=== PATIENT | male | born 1975 | race Caucasian/White ===

== ENCOUNTER 2017-03-08 15:13 | Inpatient (IN) ==
--- NOTE | 2017-03-08 15:20 | Emergency Department Note ---
Disposition Clinical Impression: Suicidal ideation Disposition: Admitted As Inpatient Condition: Good Referrals: NONE,PCP [Primary Care Provider] - Time of Disposition: 17:37 Psych HPI - General Chief Complaint: ED Psychiatric Symptoms Stated Complaint: depression Time Seen by Provider: 03/08/17 15:16 Nursing Notes Reviewed: Yes Vital Signs Reviewed: Yes - History of Present Illness HPI Narrative: 41-year-old male with past history of schizophrenia, suicidal ideations persisted emergency department complaining of racing thoughts, stating that he will walk out in front of a train to kill himself. Patient states that this should be enough to be evaluated by 1A. When asked if patient has any chest pain or any other symptoms, patient states that he does not have to answer anymore questions for me as he has already told me everything I need to know. Patient states his racing thoughts are that somebody is placing LSD on his foam roll that he sleeps on. - Related Data Previous Rx's Medication Instructions Recorded Ciprofloxacin [Cipro] 500 mg PO BID #30 tablet 02/07/15 Amoxicillin 875 mg PO BID #20 tablet 08/19/15 Guaifenesin/Pseudoephedrne HCl 1 each PO BID #20 tab.er.12h 08/19/15 [Mucinex D ER 1,200-120 mg Tab] Loratadine [Claritin] 10 mg PO DAILY #30 tablet 08/19/15 Promethazine [Phenergan] 25 mg PO Q6HR 4 Days tablet 01/30/16 Amoxicillin [Amoxil] 500 mg PO BID #20 capsule 02/15/17 Fluticasone Propionate Nasal 120 spray NS DAILY #1 bottle 02/15/17 [Flonase] Loratadine/Pseudophed (12 HR) 1 each PO BID #20 tab.er.12h 02/15/17 [Claritin D (12HR)] Allergies Allergy/AdvReac Type Severity Reaction Status Date / Time No Known Allergies Allergy Verified 02/07/15 12:07 All systems ED: reviewed and negative except as stated. Review of Systems: As Per HPI Psychiatric: Reports: depression, suicidal thoughts, other (Racing thoughts). Denies: auditory hallucinations, visual hallucinations Past Medical History - Past Medical History Medical history: Reports: non-contributory, other Surgical history: Reports: no surgical history Psychiatric history: Reports: schizophrenia - Social History Smoking Status: Never smoker Smokeless Tobacco Status: No Alcohol use: Reports: none Drug use: Reports: none Physical Exam General: Angry and agitated 41-year-old male Head: autraumatic, EOMI, no conjuncitval pallor, no scleral icterus, Mouth: oral mucous membranes moist Neck: neck soft, trachea midline Chest:: Equal chest wall rise Lungs: Normal lungs sounds bilaterally, no wheezes, no respiratory distress Heart: normal heart sounds, normal rate and rhythm, Abdomen: soft, non-tender, no rigidity, no guarding, no rebdound tenderness Lower Extremities: no pedal edema, calves non-tender Integumentary: Skin warm, dry, and intact Neuro: Alert. No focal neurologic deficits Psych: Angry, suicidal thoughts, agitated Course Vital Signs Temperature 97.6 F 03/08/17 15:18 Pulse Rate 89 03/08/17 15:18 Respiratory Rate 20 03/08/17 15:18 Blood Pressure 131/81 03/08/17 15:18 O2 Sat by Pulse Oximetry 97 03/08/17 15:18 Temperature 97.6 F 03/08/17 15:18 Pulse Rate 89 03/08/17 15:18 Respiratory Rate 20 03/08/17 15:18 Blood Pressure 131/81 03/08/17 15:18 O2 Sat by Pulse Oximetry 97 03/08/17 15:18 Oxygen Delivery Oxygen Delivery Room Air Psych - MDM Narrative Medical decision making narrative: 41-year-old male past medical history of suicidal ideations, schizophrenia, depression presents to the emergency department racing thoughts and suicidal ideations. At this time, we have ordered suicide precautions, pink slipped the patient, obtained a urinalysis, CBC, CMP, urine drug screen, Tylenol, salicylate level to medically clear this patient. He is not having any other symptoms at this time to be concerning for any other medical condition. Patient is currently hemodynamically stable. Patient's urinalysis did not reveal any signs of infection. Patient's urine tox screen did not reveal any drugs. Tylenol level was negative. Salicylate level was negative as well. Patient was cleared medically by the emergency department. Patient was then evaluated by psychiatry and they agreed to accept this patient for admission. Patient was admitted to [facility] for further psychiatric management. - Lab Data Result diagrams: 03/08/17 15:54 03/08/17 15:54 Lab Results 03/08/17 03/08/17 03/08/17 Range/Units 15:20 15:20 15:54 WBC 6.9 (4.3-11.1) K/mcL RBC 4.62 (4.19-5.50) M/mcL Hgb 14.4 (12.9-16.9) g/dL Hct 42.8 (37.5-50.1) % MCV 92.6 (83.0-100.0) fL MCH 31.2 (28.0-33.3) pg MCHC 33.6 (31.6-35.5) g/dL RDW 12.0 (11.5-14.5) % Plt Count 256 (140-400) K/mcL MPV 9.4 (9.4-12.4) fL Immature Gran % 0.1 (0-4) % Seg Neutrophils % 57.1 % Lymphocytes % 29.3 % Monocytes % 9.5 % Eosinophils % 3.3 % Basophils % 0.7 % Neutrophils # 3.9 (1.6-8.9) K/mcL Lymphocytes # 2.0 (0.6-4.6) K/mcL Monocytes # 0.7 (0.0-1.3) K/mcL Eosinophils # 0.2 (0.0-0.6) K/mcL Basophils # 0.1 (0.0-0.2) K/mcL Sodium (136-145) mEq/L Potassium (3.5-4.5) mEq/L Chloride (98-109) mEq/L Carbon Dioxide (19-29) mEq/L BUN (8-26) mg/dL Creatinine (0.72-1.25) mg/dL Est GFR ( Amer) (> 60) Est GFR (Non-Af Amer) (> 60) BUN/Creatinine Ratio (6-26) Glucose (70-99) mg/dL Calculated Osmolality (280-300) Calcium (8.6-10.8) mg/dL Urine Color Yellow (Yellow) Urine Clarity Clear (Clear) Urine pH 6.0 (5.0-8.0) pH Units Ur Specific [place] 1.028 H (1.010-1.025) Urine Protein Negative (Neg-Trace) mg/dL Urine Glucose (UA) Normal (Normal) mg/dL Urine Ketones Negative (Negative) mg/dL Urine Blood Negative (Negative) Urine Nitrite Negative (Negative) Urine Bilirubin Negative (Negative) Urine Urobilinogen Normal (Normal) mg/dL Ur Leukocyte Esterase Negative (Negative) Salicylates (15-30) mg/dL Urine Opiates Screen Negative (Evvgui=365) ng/mL Acetaminophen (10-30) mcg/mL Ur Barbiturates Screen Negative (Wtcyib=615) ng/mL Ur Phencyclidine Scrn Negative (Cutoff=25) ng/mL Ur Amphetamines Screen Negative (Euaell=7678) ng/mL U Benzodiazepines Scrn Negative (Unoifz=515) ng/mL Urine Cocaine Screen Negative (Cutoff= 300) ng/mL U Marijuana (THC) Screen Negative (Cutoff = 50) ng/mL Ethyl Alcohol (0-10) mg/dL 03/08/17 Range/Units 15:54 WBC (4.3-11.1) K/mcL RBC (4.19-5.50) M/mcL Hgb (12.9-16.9) g/dL Hct (37.5-50.1) % MCV (83.0-100.0) fL MCH (28.0-33.3) pg MCHC (31.6-35.5) g/dL RDW (11.5-14.5) % Plt Count (140-400) K/mcL MPV (9.4-12.4) fL Immature Gran % (0-4) % Seg Neutrophils % % Lymphocytes % % Monocytes % % Eosinophils % % Basophils % % Neutrophils # (1.6-8.9) K/mcL Lymphocytes # (0.6-4.6) K/mcL Monocytes # (0.0-1.3) K/mcL Eosinophils # (0.0-0.6) K/mcL Basophils # (0.0-0.2) K/mcL Sodium 142 (136-145) mEq/L Potassium 4.0 (3.5-4.5) mEq/L Chloride 107 (98-109) mEq/L Carbon Dioxide 27 (19-29) mEq/L BUN 11 (8-26) mg/dL Creatinine 0.89 (0.72-1.25) mg/dL Est GFR ( Amer) > 60 (> 60) Est GFR (Non-Af Amer) > 60 (> 60) BUN/Creatinine Ratio 12 (6-26) Glucose 92 (70-99) mg/dL Calculated Osmolality 293 (280-300) Calcium 9.1 (8.6-10.8) mg/dL Urine Color (Yellow) Urine Clarity (Clear) Urine pH (5.0-8.0) pH Units Ur Specific [place] (1.010-1.025) Urine Protein (Neg-Trace) mg/dL Urine Glucose (UA) (Normal) mg/dL Urine Ketones (Negative) mg/dL Urine Blood (Negative) Urine Nitrite (Negative) Urine Bilirubin (Negative) Urine Urobilinogen (Normal) mg/dL Ur Leukocyte Esterase (Negative) Salicylates < 5.0 L (15-30) mg/dL Urine Opiates Screen (Jbotfq=153) ng/mL Acetaminophen < 1.0 L (10-30) mcg/mL Ur Barbiturates Screen (Hlsscr=329) ng/mL Ur Phencyclidine Scrn (Cutoff=25) ng/mL Ur Amphetamines Screen (Czsmge=3877) ng/mL U Benzodiazepines Scrn (Rmdbkl=359) ng/mL Urine Cocaine Screen (Cutoff= 300) ng/mL U Marijuana (THC) Screen (Cutoff = 50) ng/mL Ethyl Alcohol < 10 (0-10) mg/dL Psychiatric Medical Clearance - Medical Clearance Checklist Medical History: Suicidal ideation (Acute) Dizziness (Inactive) Headache (Inactive) Nausea & vomiting (Inactive) Otitis media (Inactive) Sinusitis (Inactive) Urinary tract infection (Inactive) No Social History Section defined Current Vitals: Last Vital Signs Temp 97.6 F 03/08/17 15:18 Pulse 89 03/08/17 15:18 Resp 20 03/08/17 15:18 BP 131/81 03/08/17 15:18 Pulse Ox 97 03/08/17 15:18 Psychiatric Lab Panel: Drug Levels and Toxicity 03/08/17 03/08/17 15:20 15:54 Urine Opiates Screen Negative Acetaminophen < 1.0 L Ur Barbiturates Screen Negative Ur Phencyclidine Scrn Negative Ur Amphetamines Screen Negative U Benzodiazepines Scrn Negative Urine Cocaine Screen Negative U Marijuana (THC) Screen Negative Ethyl Alcohol < 10 Abnormal Labs: Abnormal lab results Ur Specific [place] 1.028 (1.010-1.025) H 03/08/17 15:20 Salicylates < 5.0 mg/dL (15-30) L 03/08/17 15:54 Acetaminophen < 1.0 mcg/mL (10-30) L 03/08/17 15:54 Attestation Statement - Attestation Attestation: I, Javon Vicente DO, examined this patient [id number] and my medical decision-making was reviewed with Dr. David Leal, Resident Physician. I agree with the documented findings, disposition and treatment plan as described except to the extent set forth below. Please see my progress notes for details. Well-appearing 41-year-old male presents to emergency room with racing thoughts. Has a history of schizophrenia. He has intermittent complaints of suicidal ideation and significant depression. Patient denies any ingestion or possible street drugs utilized at this time. He is concerned and summoned immediately releasing the home tubes that he uses in his car for sleeping on with LSD or acid. Patient vital signs and physical exam are unremarkable. Patient has what appears to be active manic episode causing delusions at this time. Denies any auditory or visual hallucinations. See detailed documentation of physical exam, medical intervention, medical decision-making and disposition pending medical clearance to be completed here in the emergency room. Present physician documented all this in detail. Patient will be evaluated by psychiatric team after medical clearance is completed. [id number] Patient accepted to the psychiatric facility at our hospital this time. Patient will be admitted.
[2017-03-08 15:29] LABS: Bilirubin,Urine Negative (Negative); Blood,Urine Negative (Negative); Clarity,Urine Clear (Clear); Color,Urine Yellow (Yellow); Glucose,Urine (UA) Normal (Normal); Ketones,Urine Negative (Negative); Leukocyte Esterase,Urine Negative (Negative); Nitrite,Urine Negative (Negative); Protein,Urine Negative (Neg-Trace); Specific Gravity,Urine 1.028 (1.010-1.025); Urobilinogen,Urine Normal (Normal)
[2017-03-08 15:35] LABS: Amphetamine Screen,Urine Negative ng/mL (Cutoff=1000); Barbiturate Screen,Urine Negative ng/mL (Cutoff=200); Benzodiazepines Screen,Urine Negative ng/mL (Cutoff=200); Cannabinoid Screen,Urine Negative ng/mL (Cutoff = 50); Cocaine Screen,Urine Negative ng/mL (Cutoff= 300); Opiate Screen,Urine Negative ng/mL (Cutoff=300); Phencyclidine Screen,Urine Negative ng/mL (Cutoff=25)
[2017-03-08 16:00] LABS: Basophils # 0.1 K/mcL (0.0-0.2); Basophils % 0.7 %; Eosinophils # 0.2 K/mcL (0.0-0.6); Eosinophils % 3.3 %; Hematocrit 42.8 % (37.5-50.1); Hemoglobin 14.4 g/dL (12.9-16.9); Immature Granulocytes % 0.1 % (0-4); Lymphocytes % 29.3 %; Mean Corpuscular HGB Conc 33.6 g/dL (31.6-35.5); Mean Corpuscular Hemoglobin 31.2 pg (28.0-33.3); Mean Corpuscular Volume 92.6 fL (83.0-100.0); Mean Platelet Volume 9.4 fL (9.4-12.4); Monocytes # 0.7 K/mcL (0.0-1.3); Monocytes % 9.5 %; Neutrophils # 3.9 K/mcL (1.6-8.9); Platelet Count 256 K/mcL (140-400); Red Blood Count 4.62 M/mcL (4.19-5.50); Segmented Neutrophils % 57.1 %
[2017-03-08 16:14] LABS: BUN/Creatinine Ratio 12 (6-26); Blood Urea Nitrogen 11 mg/dL (8-26); Carbon Dioxide 27 mEq/L (19-29); Chloride 107 mEq/L (98-109); Glucose 92 mg/dL (70-99); Sodium 142 mEq/L (136-145); eGFR For African Americans > 60 (> 60); eGFR For Non-African Americans > 60 (> 60)
[2017-03-08 16:15] LABS: Acetaminophen < 1.0 mcg/mL (10-30); Calcium 9.1 mg/dL (8.6-10.8); Osmolality,Calculated 293 (280-300)
[2017-03-08 16:16] LABS: Ethanol < 10 mg/dL (0-10); Salicylate < 5.0 mg/dL (15-30)
[2017-03-08] MEDS ORDERED: hydrOXYzine pamoate 25 MG CAPSULE PO PRN (18:13)
[2017-03-08] MEDS ORDERED: Mag Hydrox/Al Hydrox/Simeth 30 ML UDC PO PRN (18:13)
[2017-03-08] MEDS ORDERED: *HR* LORazepam 1 MG TABLET PO PRN (18:13)
[2017-03-08] MEDS ORDERED: Haloperidol Lactate 5 MG/ML VIAL IM PRN (18:13)
[2017-03-08] MEDS ORDERED: *HR* LORazepam 2 MG/ML VIAL IM PRN (18:13)
[2017-03-08] MEDS ORDERED: Ibuprofen 400 MG TABLET PO PRN (18:13)
[2017-03-08] MEDS: risperiDONE 1 MG TABLET PO SCH (21:07)
[2017-03-08] MEDS: OLANZapine 10 MG TAB.RAPDIS PO SCH (21:07)
[2017-03-08] MEDS: traZODone 50 MG TABLET PO SCH (21:07)
--- NOTE | 2017-03-09 10:46 | Psychiatry History & Physical ---
Date of Encounter: 03/09/17 Time of Encounter: 10:38 History of Present Illness Patient Stated Chief Complaint: suicidal ideation Medicare Admission Attestation: For traditional Medicare patients the provided hospital inpatient services are reasonable and necessary and in the case of services not specified as inpatient -only under 42 CFR 419.22 (n), that they are appropriately provided as inpatient services in accordance 42 CFR 412.3. For Critical Access Hospital the patient may reasonably be expected to be discharged or transferred to a hospital within 96 hours after admission to the Critical Access Hospital. Admitted From: Home Plans for Post Hospital Care: Home History of Present Illness: Mr. Hunter is a 41 year old male who presented to the ER voluntarily secondary to SI and racing thoughts. Today he denies SI and claims no SI in several weeks but his thoughts are disorganized. Denies AH but appears to be responding to internal stimuli. Prescribed high doses of antipsychotics. Claims he is compliant but this is doubtful as he told this senior technical writer the medications make him too tired and he doesn't believe he needs to take as much as he is prescribed. Will order what he is prescribed in the community ( assuming he has not been taking them as he should) and hopefully he can return to baseline without any major increases as he already takes good doses. Client denies having any medical problems or substance abuse problems. Claims he is a Oriental Orthodox and doesn't want to hurt anybody. Hyperreligious. Praying by front entrance all night. Staff worried he might be an AWOL risk as people come and go from the unit but has been cooperative overall. Rather intrusive with peers. Some paranoia. Pleasant with this senior technical writer but seems to have an affinity for women. Past Med Surg Social Fam HX - Past Medical History Medical history: non-contributory, other - Past Psychiatric History Psychiatric history: Reports: schizophrenia Family psychiatric history: Unknown Family History of Suicide: Unknown - Past Surgical History Surgical History: no surgical history - Social History Smoking Status: Never smoker Smokeless Tobacco Status: No Alcohol use: none Drug use: none Medications & Allergies Benztropine [Cogentin] 1 mg PO BID 03/08/17 [History] Tamsulosin [Flomax] 0.4 mg PO BID 03/08/17 [History] Trazodone HCl [Trazodone HCl] 100 mg PO HS 03/08/17 [History] risperiDONE [Risperdal] 4 mg PO HS 03/08/17 [History] Fluticasone Propionate Nasal [Flonase] 100 mcg NS DAILY 03/09/17 [History] OLANZapine [Zyprexa] 30 mg PO HS 03/09/17 [History] 3 Allergy/AdvReac Type Severity Reaction Status Date / Time No Known Allergies Allergy Verified 02/07/15 12:07 Review of Systems Constitutional: Denies: fever, chills, weakness, weight change Eyes: Denies: eye pain, vision change Ears, Nose, Throat: Denies: ear pain, throat pain, dental pain, hearing loss, congestion Cardiovascular: Denies: chest pain, palpitations, dyspnea on exertion Respiratory: Denies: cough, dyspnea, wheezes Gastrointestinal: Denies: abdominal pain, nausea, vomiting, diarrhea, constipation Genitourinary male: Denies: urgency, dysuria, frequency, genital lesions Genitourinary female: Denies: urgency, dysuria, frequency, abnormal menses, dyspareunia Musculoskeletal: Denies: joint swelling, joint pain Integumentary: Denies: rash, lesions, pruritus Neurological: Denies: headache, weakness, numbness, memory loss Endocrine: Denies: fatigue, heat or cold intolerance Hematologic/Lymphatic: Denies: easy bruising, lymphadenopathy Allergic/Immunologic: Denies: urticaria, itchy eyes Mental Status Exam Patient orientation: Yes Person, Yes Place Level of alertness: Alert Patient appearance: Appropriate Behavior: calm, cooperative Psychomotor activity: Normal Eye contact: Maintains Eye Contact Mood description: Irritable Affect description: full range Speech pattern: Normal rate, Normal rhythm, Normal tone Speech volume: Normal Thought process: Disorganized Thought content: No Suicidal ideation, No Homicidal ideation, Yes Preoccupation Perceptual disturbances: Yes Reacting to internal stimuli, No Auditory hallucinations, No Visual hallucinations Attention span: Unable to Focus, Unable to Sustain Attention Memory description: Grossly Intact Patient reliability: Questionable Historian Intelligence estimate: Average Judgment: Limited Insight: Minimal Exam - HEENT Head exam IM: Present: atraumatic Eye exam IM: Present: EOMI ENT exam IM: Present: mucous membranes moist - Neurological Neurological exam IM: Present: alert - Respiratory Respiratory exam IM: Present: CTAB - GI/Abdominal GI/Abdominal exam IM: Present: normal bowel sounds - Extremities Extremities exam IM: Present: full ROM - Skin Skin exam IM: Present: normal color Results - Vital Signs Vital signs: Temp Pulse Resp BP Pulse Ox 98.7 F 78 17 130/87 97 03/08/17 20:28 03/08/17 20:28 03/08/17 20:28 03/08/17 20:28 03/08/17 15:18 - Labs Labs: Laboratory Last Values WBC 6.9 K/mcL (4.3-11.1) 03/08/17 15:54 RBC 4.62 M/mcL (4.19-5.50) 03/08/17 15:54 Hgb 14.4 g/dL (12.9-16.9) 03/08/17 15:54 Hct 42.8 % (37.5-50.1) 03/08/17 15:54 MCV 92.6 fL (83.0-100.0) 03/08/17 15:54 MCH 31.2 pg (28.0-33.3) 03/08/17 15:54 MCHC 33.6 g/dL (31.6-35.5) 03/08/17 15:54 RDW 12.0 % (11.5-14.5) 03/08/17 15:54 Plt Count 256 K/mcL (140-400) 03/08/17 15:54 MPV 9.4 fL (9.4-12.4) 03/08/17 15:54 Immature Gran % 0.1 % (0-4) 03/08/17 15:54 Seg Neutrophils % 57.1 % 03/08/17 15:54 Lymphocytes % 29.3 % 03/08/17 15:54 Monocytes % 9.5 % 03/08/17 15:54 Eosinophils % 3.3 % 03/08/17 15:54 Basophils % 0.7 % 03/08/17 15:54 Neutrophils # 3.9 K/mcL (1.6-8.9) 03/08/17 15:54 Lymphocytes # 2.0 K/mcL (0.6-4.6) 03/08/17 15:54 Monocytes # 0.7 K/mcL (0.0-1.3) 03/08/17 15:54 Eosinophils # 0.2 K/mcL (0.0-0.6) 03/08/17 15:54 Basophils # 0.1 K/mcL (0.0-0.2) 03/08/17 15:54 Sodium 142 mEq/L (136-145) 03/08/17 15:54 Potassium 4.0 mEq/L (3.5-4.5) 03/08/17 15:54 Chloride 107 mEq/L (98-109) 03/08/17 15:54 Carbon Dioxide 27 mEq/L (19-29) 03/08/17 15:54 BUN 11 mg/dL (8-26) 03/08/17 15:54 Creatinine 0.89 mg/dL (0.72-1.25) 03/08/17 15:54 Est GFR ( Amer) > 60 (> 60) 03/08/17 15:54 Est GFR (Non-Af Amer) > 60 (> 60) 03/08/17 15:54 BUN/Creatinine Ratio 12 (6-26) 03/08/17 15:54 Glucose 92 mg/dL (70-99) 03/08/17 15:54 Calculated Osmolality 293 (280-300) 03/08/17 15:54 Calcium 9.1 mg/dL (8.6-10.8) 03/08/17 15:54 Urine Color Yellow (Yellow) 03/08/17 15:20 Urine Clarity Clear (Clear) 03/08/17 15:20 Urine pH 6.0 pH Units (5.0-8.0) 03/08/17 15:20 Ur Specific [place] 1.028 (1.010-1.025) H 03/08/17 15:20 Urine Protein Negative mg/dL (Neg-Trace) 03/08/17 15:20 Urine Glucose (UA) Normal mg/dL (Normal) 03/08/17 15:20 Urine Ketones Negative mg/dL (Negative) 03/08/17 15:20 Urine Blood Negative (Negative) 03/08/17 15:20 Urine Nitrite Negative (Negative) 03/08/17 15:20 Urine Bilirubin Negative (Negative) 03/08/17 15:20 Urine Urobilinogen Normal mg/dL (Normal) 03/08/17 15:20 Ur Leukocyte Esterase Negative (Negative) 03/08/17 15:20 Salicylates < 5.0 mg/dL (15-30) L 03/08/17 15:54 Urine Opiates Screen Negative ng/mL (Yllsmf=854) 03/08/17 15:20 Acetaminophen < 1.0 mcg/mL (10-30) L 03/08/17 15:54 Ur Barbiturates Screen Negative ng/mL (Jsklkm=221) 03/08/17 15:20 Ur Phencyclidine Scrn Negative ng/mL (Cutoff=25) 03/08/17 15:20 Ur Amphetamines Screen Negative ng/mL (Hitpmc=2113) 03/08/17 15:20 U Benzodiazepines Scrn Negative ng/mL (Dnlgaq=154) 03/08/17 15:20 Urine Cocaine Screen Negative ng/mL (Cutoff= 300) 03/08/17 15:20 U Marijuana (THC) Screen Negative ng/mL (Cutoff = 50) 03/08/17 15:20 Ethyl Alcohol < 10 mg/dL (0-10) 03/08/17 15:54 Assessment and Plan (1) Schizophrenia Current visit: Yes Status: Acute Plan: Admit inpatient for safety and stabilization, Close observation, Suicide Precautions per unit protocol, Encourage participation in unit milieu, Group Therapy, Monitor sleep, Monitor appetite Risks, benefits, side effects, alternatives discussed w/pt: Yes Patient agreeable to treatment: Yes Plans for Post Hospital Care: Home Estimated Length of Stay (Days): 5 Qualifiers: Schizophrenia type: unspecified Qualified Code(s): F20.9 - Schizophrenia, unspecified
[2017-03-09] MEDS: risperiDONE 1 MG TABLET PO SCH (21:13)
[2017-03-09] MEDS: OLANZapine 10 MG TAB.RAPDIS PO SCH (21:14)
[2017-03-09] MEDS: traZODone 50 MG TABLET PO SCH (21:16)
--- NOTE | 2017-03-10 10:39 | Psychiatry Progress Note ---
Date of Encounter: 03/10/17 Time of Encounter: 09:40 Subjective Interval history: Nicolas is a 41-year-old male with a history of schizophrenia who presented to the hospital with racing thoughts and anxiety. Patient reports that he had not been taking his meds daily because they made him so sleepy. He has been somewhat difficult to interview because he is actively thought blocking although he denies auditory or visual hallucinations. Patient reports that he is "feeling better." He is very paranoid and suspicious of this provider during the interview. He cannot remember all the medications he takes or the doses. Affect is incongruent with stated mood and actions during the interview. Review of Systems ROS limited: due to patient condition Psychiatric: Reports: anxiety, other (Paranoia) Objective: Exam Patient orientation: Yes Person Level of alertness: Alert Patient appearance: Unkempt Behavior: guarded, suspicious Psychomotor activity: Normal Eye contact: Intense Contact Mood description: Euthymic/stable Affect description: flat, incongruent with mood Speech pattern: Slowed Speech volume: Normal Thought process: Thought Blocking, Disorganized Thought content: No Suicidal ideation, No Homicidal ideation Perceptual disturbances: Yes Reacting to internal stimuli, No Auditory hallucinations Judgment: Poor Insight: None Results - Vital Signs Vital Signs: Temp Pulse Resp BP Pulse Ox 97.6 F 91 16 130/74 97 03/10/17 09:00 03/10/17 09:00 03/10/17 09:00 03/10/17 09:00 03/08/17 15:18 Assessment and Plan (1) Schizophrenia Current visit: Yes Status: Acute Plan: Continue hospitalization, Close observation, Suicide Precautions per unit protocol, Encourage participation in unit milieu, Group Therapy, Monitor sleep, Monitor appetite Additional Plan: We will monitor patient very carefully for side effects. Considering lowering the dose of Zyprexa considering he is not able to take it everyday as an outpatient because it makes him too sedated. Encouraged patient to interact with peers and staff as tolerated. Contact family if possible for collateral information. Risks, benefits, side effects, alternatives discussed w/pt: Yes Patient agreeable to treatment: Yes Qualifiers: Schizophrenia type: unspecified Qualified Code(s): F20.9 - Schizophrenia, unspecified Consult Discharge Plan - Plan Referrals: NONE,PCP [Primary Care Provider] -
[2017-03-10] MEDS: risperiDONE 1 MG TABLET PO SCH (20:38)
[2017-03-10] MEDS: OLANZapine 10 MG TAB.RAPDIS PO SCH (20:39)
[2017-03-10] MEDS: traZODone 50 MG TABLET PO SCH (20:40)
[2017-03-10] MEDS: traZODone 50 MG TABLET PO PRN (20:41)
--- NOTE | 2017-03-11 09:54 | Psychiatry Progress Note ---
Date of Encounter: 03/11/17 Time of Encounter: 09:10 Subjective Interval history: Nicolas is seen today for follow-up. When this provider entered the room he was praying. Patient reported that he feels like he would hurt himself because "I do not know where I go." He also is suspicious about food and drinking offered to him by staff. He is willing to continue to take his medications and he denies side effects. He does report he had not been taking them as prescribed outside of the hospital. His biggest complaint was that they made him too sedated. Patient is thought blocking throughout the interview. Review of Systems Psychiatric: Reports: anxiety, other (Paranoia) Objective: Exam Patient orientation: Yes Person, Yes Place Level of alertness: Alert Patient appearance: Unkempt Behavior: guarded, suspicious Psychomotor activity: Normal Eye contact: Intense Contact Mood description: Euthymic/stable Affect description: flat Speech pattern: Slowed Speech volume: Normal Thought process: Thought Blocking, Disorganized Thought content: Yes Paranoid delusion, Yes Hindu delusion Perceptual disturbances: Yes Reacting to internal stimuli, No Auditory hallucinations, No Visual hallucinations Judgment: Poor Insight: None Results - Vital Signs Vital Signs: Temp Pulse Resp BP Pulse Ox 97.6 F 81 16 111/74 97 03/11/17 09:00 03/11/17 09:00 03/11/17 09:00 03/11/17 09:00 03/08/17 15:18 Assessment and Plan (1) Schizophrenia Current visit: Yes Status: Acute Plan: Continue hospitalization, Close observation, Suicide Precautions per unit protocol, Encourage participation in unit milieu, Group Therapy, Monitor sleep, Monitor appetite Additional Plan: We will continue to monitor on these medications. Patient has not been taking them regularly. We will not increase or change until we see how this dosage affects patient. Continue to monitor for side effects and encourage group attendance. Risks, benefits, side effects, alternatives discussed w/pt: Yes Patient agreeable to treatment: Yes Qualifiers: Schizophrenia type: unspecified Qualified Code(s): F20.9 - Schizophrenia, unspecified Consult Discharge Plan - Plan Referrals: [facility] [Outside] - 03/18/17 9:30 am (The above appointment is with Antoinette Frederick for outpatient psychiatric assessment and medication management services. You will also see)
[2017-03-11] MEDS ORDERED: Latanoprost 2.5 ML BOTTLE BOTH EYES SCH (21:00)
[2017-03-11] MEDS: OLANZapine 10 MG TAB.RAPDIS PO SCH (21:42)
[2017-03-11] MEDS: risperiDONE 1 MG TABLET PO SCH (21:43)
[2017-03-11] MEDS: traZODone 50 MG TABLET PO SCH (21:43)
[2017-03-11] MEDS: Latanoprost 2.5 ML BOTTLE BOTH EYES SCH (21:45)
--- NOTE | 2017-03-12 09:49 | Psychiatry Progress Note ---
Date of Encounter: 03/12/17 Time of Encounter: 09:55 Subjective Interval history: Patient is seen today for follow-up. He remains guarded and paranoid. Patient reported to staff that he needs to "some odd jobs so I can pay these loans off. " Patient denies auditory hallucinations but still has latencies in his speech that maybe thought blocking. Patient does not want to discuss what these loans he needs to pay for. He verbalized to staff yesterday that he thought people were shaving medicine into his food. He denies this today but asks "are there security camera to his monitoring all this?" He reports he is sleeping well. Staff report 7.25 hours of sleep last night. He denies side effects of his medications. Review of Systems Psychiatric: Reports: anxiety, other (Paranoia) Objective: Exam Patient orientation: Yes Person, Yes Place Level of alertness: Alert Patient appearance: Appropriate Behavior: guarded, suspicious Psychomotor activity: Slowed Eye contact: Diverts Contact Mood description: Euthymic/stable Affect description: flat Speech pattern: Delayed Speech volume: Soft/Quiet Thought process: Thought Blocking, Slowed Thinking Thought content: Yes Preoccupation, Yes Paranoid delusion Perceptual disturbances: Yes Reacting to internal stimuli, No Auditory hallucinations, No Visual hallucinations Judgment: Poor Insight: None Results - Vital Signs Vital Signs: Temp Pulse Resp BP Pulse Ox 97.6 F 91 22 115/76 97 03/12/17 08:50 03/12/17 08:50 03/12/17 08:50 03/12/17 08:50 03/08/17 15:18 Assessment and Plan (1) Schizophrenia Current visit: Yes Status: Acute Plan: Continue hospitalization, Close observation, Suicide Precautions per unit protocol, Encourage participation in unit milieu, Group Therapy, Monitor sleep, Monitor appetite Additional Plan: Continue current meds. Patient has been off meds for a while and we restarted and will monitor for improvement in his paranoia. He does seem to be slightly more talkative today than in previous days but remains very guarded. Probate paperwork filed. Encourage appropriate ADLs. Risks, benefits, side effects, alternatives discussed w/pt: Yes Patient agreeable to treatment: Yes Qualifiers: Schizophrenia type: unspecified Qualified Code(s): F20.9 - Schizophrenia, unspecified Consult Discharge Plan - Plan Referrals: [facility] [Outside] - 03/18/17 9:30 am (The above appointment is with Antoinette Frederick for outpatient psychiatric assessment and medication management services. You will also see)
[2017-03-12] MEDS: OLANZapine 10 MG TAB.RAPDIS PO SCH (20:43)
[2017-03-12] MEDS: risperiDONE 1 MG TABLET PO SCH (20:45)
[2017-03-12] MEDS: traZODone 50 MG TABLET PO SCH (20:45)
[2017-03-12] MEDS: Latanoprost 2.5 ML BOTTLE BOTH EYES SCH (20:56)
--- NOTE | 2017-03-13 12:33 | Psychiatry Progress Note ---
Date of Encounter: 03/13/17 Time of Encounter: 09:00 Subjective Interval history: Nicolas is seen today for follow-up. He continues to be guarded about his medications but states that he does think his current meds are helping him. At this time he is hesitant to follow-up at [facility] but they are holding a bed for him. He denies auditory hallucinations and his thought process is more organized today. He still remains paranoid about food and other items given to him here at the hospital. He has been interacting more with peers and staff. Review of Systems Psychiatric: Reports: anxiety, other (Paranoia) Objective: Exam Patient orientation: Yes Person, Yes Time, Yes Place Level of alertness: Alert Patient appearance: Appropriate, Well Groomed Behavior: guarded, suspicious Psychomotor activity: Normal Eye contact: Minimal Contact Mood description: Euthymic/stable Affect description: flat Speech pattern: Slowed, Delayed Speech volume: Normal Thought process: [place], Slowed Thinking Thought content: No Suicidal ideation, No Homicidal ideation Perceptual disturbances: No Auditory hallucinations, No Visual hallucinations Judgment: Limited Insight: Minimal Results - Vital Signs Vital Signs: Temp Pulse Resp BP Pulse Ox 97.3 F L 69 18 121/74 97 03/13/17 09:00 03/13/17 09:00 03/13/17 09:00 03/13/17 09:00 03/08/17 15:18 Assessment and Plan (1) Schizophrenia Current visit: Yes Status: Acute Plan: Continue hospitalization, Close observation, Suicide Precautions per unit protocol, Encourage participation in unit milieu, Group Therapy, Monitor sleep, Monitor appetite Additional Plan: Patient seems more conversant today and his latency of speech is improving. He does remain paranoid but is redirectable when discussing concerns about medications and food. Continue to monitor and encourage patient to consider respite after his discharge from the hospital. Risks, benefits, side effects, alternatives discussed w/pt: Yes Patient agreeable to treatment: Yes Qualifiers: Schizophrenia type: unspecified Qualified Code(s): F20.9 - Schizophrenia, unspecified Consult Discharge Plan - Plan Referrals: [facility] [Outside] - 03/18/17 9:30 am (The above appointment is with Antoinette Frederick for outpatient psychiatric assessment and medication management services. You will also see)
[2017-03-13] MEDS: traZODone 50 MG TABLET PO SCH (20:57)
[2017-03-13] MEDS: OLANZapine 10 MG TAB.RAPDIS PO SCH (20:57)
[2017-03-13] MEDS: risperiDONE 1 MG TABLET PO SCH (20:58)
[2017-03-13] MEDS: traZODone 50 MG TABLET PO PRN (20:58)
[2017-03-13] MEDS: Latanoprost 2.5 ML BOTTLE BOTH EYES SCH (21:02)
[2017-03-13] MEDS: MOM Conc 10 ML UD.LIQ PO PRN (21:20)
--- NOTE | 2017-03-14 11:23 | Psychiatry Progress Note ---
Date of Encounter: 03/14/17 Time of Encounter: 10:45 Subjective Interval history: Nicolas is seen today for follow-up. He reports that he is still worried about paying off a loan he needs to pay off before March. He will not go into more depth on this subject and seemed paranoid and guarded about this. He continues to be religiously preoccupied. Still does appear to be responding to internal stimuli at times. He reports he is sleeping well and denies issues with his current meds. 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 Review of Systems Psychiatric: Reports: anxiety, other (Paranoia) Objective: Exam Patient orientation: Yes Person, Yes Time, Yes Place Level of alertness: Alert Patient appearance: Appropriate Behavior: calm, guarded Psychomotor activity: Slowed Eye contact: Diverts Contact Mood description: Euthymic/stable Affect description: flat Speech pattern: Normal rate, Normal rhythm, Normal tone Speech volume: Normal Thought process: [place] Thought content: Yes Paranoid delusion, Yes Latter Day delusion Perceptual disturbances: No Auditory hallucinations Judgment: Limited Insight: None Results - Vital Signs Vital Signs: Temp Pulse Resp BP Pulse Ox 97.8 F 60 16 120/74 97 03/13/17 21:00 03/13/17 21:00 03/13/17 21:00 03/13/17 21:00 03/08/17 15:18 Assessment and Plan (1) Schizophrenia Current visit: Yes Status: Acute Plan: Continue hospitalization, Close observation, Suicide Precautions per unit protocol, Encourage participation in unit milieu, Group Therapy, Monitor sleep, Monitor appetite Additional Plan: Continue current medications. Patient remains paranoid but has been off meds for a while. Consider further adjustments if we do not see any improvement over the next day or so. Encouraged patient to consider placement in respite when discharged from the hospital. Risks, benefits, side effects, alternatives discussed w/pt: Yes Patient agreeable to treatment: Yes Qualifiers: Schizophrenia type: unspecified Qualified Code(s): F20.9 - Schizophrenia, unspecified Consult Discharge Plan - Plan Referrals: [facility] [Outside] - 03/18/17 9:30 am (The above appointment is with Antoinette Frederick for outpatient psychiatric assessment and medication management services. You will also see)
[2017-03-14] MEDS: risperiDONE 1 MG TABLET PO SCH (21:17)
[2017-03-14] MEDS: OLANZapine 10 MG TAB.RAPDIS PO SCH (21:17)
[2017-03-14] MEDS: traZODone 50 MG TABLET PO SCH (21:17)
[2017-03-14] MEDS: Latanoprost 2.5 ML BOTTLE BOTH EYES SCH (21:44)
--- NOTE | 2017-03-15 11:15 | Psychiatry Progress Note ---
Date of Encounter: 03/15/17 Time of Encounter: 10:47 Subjective Interval history: Patient seen and interviewed. History and physical examination reviewed. Patient has started to notice improvement in his mood. He is denying any auditory hallucinations and not focused and preoccupied with scientologist ideas and delusions. The staff reported that patient is still responding to internal stimuli often on. He has started to come out of his room and attended a group. He is engaged cooperative and controlled. On occasions patient demonstrated some loosening of association but for most part able to hold a linear conversation. Tolerating medications fairly well. Review of Systems Psychiatric: Reports: anxiety, other (Paranoia) Objective: Exam Patient orientation: Yes Person, Yes Time, Yes Place Level of alertness: Alert Patient appearance: Appropriate, Well Groomed Behavior: cooperative, anxious Psychomotor activity: Normal Eye contact: Maintains Eye Contact Mood description: Anxious Affect description: congruent with mood, constricted Speech pattern: Normal rate, Normal rhythm, Normal tone Speech volume: Normal Thought process: Linear, Goal Oriented, Loose Associations Thought content: No Suicidal ideation, No Homicidal ideation, No Overt delusions Perceptual disturbances: No Auditory hallucinations, No Visual hallucinations Judgment: Fair Insight: Partial Results - Vital Signs Vital Signs: Temp Pulse Resp BP Pulse Ox 97.6 F 71 18 102/62 97 03/15/17 09:00 03/15/17 09:00 03/15/17 09:00 03/15/17 09:00 03/08/17 15:18 Assessment and Plan (1) Schizophrenia Current visit: Yes Status: Acute Plan: Continue hospitalization, Close observation, Suicide Precautions per unit protocol, Encourage participation in unit milieu, Group Therapy, Monitor sleep, Monitor appetite Additional Plan: Continue with current regime of medications. Risks, benefits, side effects, alternatives discussed w/pt: Yes Patient agreeable to treatment: Yes Qualifiers: Schizophrenia type: unspecified Qualified Code(s): F20.9 - Schizophrenia, unspecified Consult Discharge Plan - Plan Referrals: [facility] [Outside] - 03/18/17 9:30 am (The above appointment is with Antoinette Frederick for outpatient psychiatric assessment and medication management services. You will also see Jina Granda for counseling/case management services on )
[2017-03-15] MEDS: MOM Conc 10 ML UD.LIQ PO PRN (12:42)
[2017-03-15] MEDS: OLANZapine 10 MG TAB.RAPDIS PO SCH (22:07)
[2017-03-15] MEDS: traZODone 50 MG TABLET PO SCH (22:08)
[2017-03-15] MEDS: risperiDONE 1 MG TABLET PO SCH (22:08)
[2017-03-15] MEDS: Latanoprost 2.5 ML BOTTLE BOTH EYES SCH (22:09)
--- NOTE | 2017-03-16 11:42 | Psychiatry Progress Note ---
Date of Encounter: 03/16/17 Time of Encounter: 11:27 Subjective Interval history: Patient seen and interviewed. Still paranoid and delusional reporting that his food was contaminated with snakes. Still talking to himself. Able to engage in a meaningful conversation for most part however exhibiting loosening from time to time. Denying any suicidal or homicidal ideations. Tolerating medications fairly well. Review of Systems Psychiatric: Reports: anxiety, other (Paranoia) Objective: Exam Patient orientation: Yes Person, Yes Time, Yes Place Level of alertness: Alert Patient appearance: Appropriate, Well Groomed Behavior: calm, cooperative Psychomotor activity: Normal Eye contact: Maintains Eye Contact Mood description: Euthymic/stable Affect description: congruent with mood, full range Speech pattern: Normal rate, Normal rhythm, Normal tone Speech volume: Normal Thought process: Linear, Goal Oriented Thought content: No Suicidal ideation, No Homicidal ideation, No Overt delusions , Yes Paranoid delusion Perceptual disturbances: No Auditory hallucinations, Yes Visual hallucinations Judgment: Fair Insight: Partial Results - Vital Signs Vital Signs: Temp Pulse Resp BP Pulse Ox 96.9 F L 53 16 120/73 97 03/16/17 09:00 03/16/17 09:00 03/16/17 09:00 03/16/17 09:00 03/08/17 15:18 Assessment and Plan (1) Schizophrenia Current visit: Yes Status: Acute Plan: Continue hospitalization, Close observation, Suicide Precautions per unit protocol, Encourage participation in unit milieu, Group Therapy, Monitor sleep, Monitor appetite Additional Plan: Will increase Zyprexa to 30 mg at bedtime Risks, benefits, side effects, alternatives discussed w/pt: Yes Patient agreeable to treatment: Yes Qualifiers: Schizophrenia type: unspecified Qualified Code(s): F20.9 - Schizophrenia, unspecified Consult Discharge Plan - Plan Referrals: [facility] [Outside] - 03/18/17 9:30 am (The above appointment is with Antoinette Frederick for outpatient psychiatric assessment and medication management services. You will also see Jina Granda for counseling/case management services on )
[2017-03-16] MEDS: risperiDONE 1 MG TABLET PO SCH (21:20)
[2017-03-16] MEDS: traZODone 50 MG TABLET PO SCH (21:21)
[2017-03-16] MEDS: OLANZapine 10 MG TAB.RAPDIS PO SCH (21:22)
[2017-03-16] MEDS: Latanoprost 2.5 ML BOTTLE BOTH EYES SCH (21:25)
--- NOTE | 2017-03-17 14:42 | Psychiatry Progress Note ---
Date of Encounter: 03/17/17 Time of Encounter: 14:35 Subjective Interval history: Client reports he is ready for discharge. Scheduled for probate hearing tomorrow. Client did not realize he had a court hearing tomorrow. Willing to sign in to the hospital. Seemed scared by the prospect of having a court hearing. Denies SI/HI. Also denies AH. However, according to staff he is still psychotic. No major changes since admission. Already taking high doses of two different antipsychotics. Likely has symptoms at baseline. According to outpatient providers client historically takes enough meds in the community to keep himself out of the hospital. Has not had an admission since 2000. Respite care would be best option. However, client has his own apartment and he is insistent he return to it. Willing to follow up with [facility] and he has been linked with their services for a long time. Doubt probate is necessary. May be able to discharge tomorrow. Review of Systems Constitutional: Denies: fever, chills, weakness, weight change Eyes: Denies: eye pain, vision change Ears, Nose, Throat: Denies: ear pain, throat pain, dental pain, hearing loss, congestion Cardiovascular: Denies: chest pain, palpitations, dyspnea on exertion Respiratory: Denies: cough, dyspnea, wheezes Gastrointestinal: Denies: abdominal pain, nausea, vomiting, diarrhea, constipation Musculoskeletal: Denies: joint swelling, joint pain Neurological: Denies: headache, weakness, numbness, memory loss Psychiatric: Reports: anxiety, other (Paranoia) Objective: Exam Patient orientation: Yes Person, Yes Time, Yes Place Level of alertness: Alert Patient appearance: Appropriate Behavior: calm, cooperative Psychomotor activity: Normal Eye contact: Maintains Eye Contact Mood description: Euthymic/stable Affect description: blunted Speech pattern: Normal rate, Normal rhythm, Normal tone Speech volume: Normal Thought process: Goal Oriented Thought content: No Suicidal ideation, No Homicidal ideation Perceptual disturbances: Yes Reacting to internal stimuli, No Auditory hallucinations, No Visual hallucinations Judgment: Fair Insight: Partial Results - Vital Signs Vital Signs: Temp Pulse Resp BP Pulse Ox 98.0 F 82 12 109/71 97 03/17/17 12:30 03/17/17 12:30 03/17/17 12:30 03/17/17 12:30 03/08/17 15:18 Assessment and Plan (1) Schizophrenia Current visit: Yes Status: Acute Plan: Continue hospitalization, Close observation, Suicide Precautions per unit protocol, Encourage participation in unit milieu, Group Therapy, Monitor sleep, Monitor appetite Risks, benefits, side effects, alternatives discussed w/pt: Yes Patient agreeable to treatment: Yes Qualifiers: Schizophrenia type: unspecified Qualified Code(s): F20.9 - Schizophrenia, unspecified Consult Discharge Plan - Plan Referrals: [facility] [Outside] - 03/18/17 9:30 am (The above appointment is with Antoinette Frederick for outpatient psychiatric assessment and medication management services. You will also see Jina Granda for counseling/case management services on )
[2017-03-17] MEDS: risperiDONE 1 MG TABLET PO SCH (20:48)
[2017-03-17] MEDS: OLANZapine 10 MG TAB.RAPDIS PO SCH (20:49)
[2017-03-17] MEDS: traZODone 50 MG TABLET PO SCH (20:49)
[2017-03-17] MEDS: Latanoprost 2.5 ML BOTTLE BOTH EYES SCH (20:51)
[2017-03-18 08:38] VITALS: BP 115/63
--- NOTE | 2017-03-18 13:02 | Discharge Summary ---
Date of Encounter: 03/18/17 Time of Encounter: 12:57 Diagnosis - Discharge Diagnosis (1) Schizophrenia Status: Acute Qualifiers: Schizophrenia type: unspecified Qualified Code(s): F20.9 - Schizophrenia, unspecified Medications - Discharge Medications Prescriptions: Benztropine [Cogentin] 1 mg PO BID #60 tablet OLANZapine [Zyprexa Zydis] 30 mg PO HS #105 tab.rapdis risperiDONE [RisperDAL] 4 mg PO HS #140 tablet traZODone [TraZODone] 100 mg PO HS #60 tablet Fluticasone Propionate Nasal [Flonase] 100 mcg NS DAILY 03/09/17 [History] OLANZapine [Zyprexa] 30 mg PO HS 03/09/17 [History] Benztropine [Cogentin] 1 mg PO BID #60 tablet 03/18/17 [Rx] Docusate [Colace] 100 mg PO BID capsule 03/18/17 [Rx] Latanoprost [Xalatan] 1 drop BOTH EYES HS bottle 03/18/17 [Rx] OLANZapine [Zyprexa Zydis] 30 mg PO HS #105 tab.rapdis 03/18/17 [Rx] Tamsulosin [Flomax] 0.4 mg PO HS capsule 03/18/17 [Rx] risperiDONE [RisperDAL] 4 mg PO HS #140 tablet 03/18/17 [Rx] traZODone [TraZODone] 100 mg PO HS #60 tablet 03/18/17 [Rx] 3 Allergy/AdvReac Type Severity Reaction Status Date / Time No Known Allergies Allergy Verified 02/07/15 12:07 Provider Date of admission: 03/08/17 17:30 Primary care physician: PCP NONE Discharging clinician: Chandni Farfan Assessment and Plan - Patient/Caregiver Discharge Instructions Activity: resume usual activities as tolerated - Follow up Plan Follow up with: [facility] [Outside] - 03/19/17 9:00 am (The above appointment is with Jina Granda for mental health counseling and case management services. You will also see Antoinette Frederick for outpatient psychiatric assessment and medication management services on 04/22/2017 at 9:00am. ) Functional capacity at discharge: independent ambulation Overall status at discharge: Stable Disposition: Home, Self-Care Hospital Course Hospital course: Mr. Hunter is a 41 year old male who brought himself to the hospital secondary to depression and psychosis. He has been linked with psychiatric services for years and despite having Schizophrenia this was his first hospitalization since 2000. According to his mental health center client always takes enough meds so that he is at least functional in the community. Client was cooperative with medications in the hospital. At the time of discharge he was still demonstrating some peculiarities but he was no longer floridly psychotic. Staff tried to convince client to go to respite care but he wanted to return to his own apartment. [facility] agreed to do daily med drops for client which he was agreeable to. Staff were also able to set him up with a counseling appointment for the morning following discharge. Given the chronicity of his illness both inpatient and outpatient staff felt client was at his baseline on the day of discharge. Client was denying SI/HI/AH /VH on the day of discharge. He had been pleasant in the hospital and he had demonstrated no aggressive behaviors toward self or others. - Time Spent with Patient Total time spent providing and/or coordinating discharge services: Quality - Multiple Antipsychotics Patient discharged on 2 or more antipsychotic medications: Yes - Justification Documentation of: History 3 failed trials of monotherapy (zyprexa, risperdal, haldol) Procedures - Procedures Procedures: Medication Management, Crisis Stabilization, Supportive Therapy, Group Therapy Mental Status Exam - Mental Status Exam Patient orientation: Yes Person, Yes Time, Yes Place Level of alertness: Alert Patient appearance: Appropriate Behavior: calm, cooperative Psychomotor activity: Normal Eye contact: Maintains Eye Contact Mood description: Euthymic/stable Affect description: congruent with mood, full range Speech pattern: Normal rate, Normal rhythm, Normal tone Speech Volume: Normal Thought process: Goal Oriented Thought Content: No Suicidal ideation, No Homicidal ideation, No Overt delusions Perceptual Disturbances: No Auditory hallucinations, No Visual hallucinations Judgment: Fair Insight: Partial
== END 2017-03-18 13:45 | disposition home or self-care (01) | DRG 885 ==
LOC: EMEROO 15:13 → 1ANU 17:30 → SUATTDRO 17:30 → 1ANU 17:33
PROVIDERS: ADMIT Psychiatry & Neurology Psychiatry; ATTEND Psychiatry & Neurology Psychiatry

== ENCOUNTER 2017-05-27 17:50 | Inpatient (IN) ==
--- NOTE | 2017-05-27 18:13 | Emergency Department Note ---
Overdose - Lab Data Lab results reviewed: Yes I reviewed the patient's lab results. Result diagrams: 05/27/17 18:21 05/27/17 18:21 Lab Results 05/27/17 05/27/17 05/27/17 Range/Units 18:21 18:21 19:36 WBC 7.8 (4.3-11.1) K/mcL RBC 4.48 (4.19-5.50) M/mcL Hgb 13.7 (12.9-16.9) g/dL Hct 41.1 (37.5-50.1) % MCV 91.7 (83.0-100.0) fL MCH 30.6 (28.0-33.3) pg MCHC 33.3 (31.6-35.5) g/dL RDW 11.9 (11.5-14.5) % Plt Count 242 (140-400) K/mcL MPV 9.9 (9.4-12.4) fL Immature Gran % 0.3 (0-4) % Seg Neutrophils % 58.8 % Lymphocytes % 28.3 % Monocytes % 9.7 % Eosinophils % 2.3 % Basophils % 0.6 % Neutrophils # 4.6 (1.6-8.9) K/mcL Lymphocytes # 2.2 (0.6-4.6) K/mcL Monocytes # 0.8 (0.0-1.3) K/mcL Eosinophils # 0.2 (0.0-0.6) K/mcL Basophils # 0.1 (0.0-0.2) K/mcL Sodium 140 (136-145) mEq/L Potassium 4.1 (3.5-5.1) mEq/L Chloride 106 (98-107) mEq/L Carbon Dioxide 30 H (23-29) mEq/L BUN 13 (6-20) mg/dL Creatinine 0.93 (0.70-1.30) mg/dL Est GFR ( Amer) > 60 (> 60) Est GFR (Non-Af Amer) > 60 (> 60) BUN/Creatinine Ratio 14 (6-26) Glucose 100 (70-105) mg/dL Calculated Osmolality 290 (280-300) Calcium 9.5 (8.6-10.3) mg/dL Total Bilirubin 0.6 (0.3-1.0) mg/dL Direct Bilirubin 0.2 (0.0-0.2) mg/dL Indirect Bilirubin 0.4 (0.0-1.2) mg/dL AST 13 (13-39) Units/L ALT 12 (7-52) Units/L Alkaline Phosphatase 52 (34-104) Units/L Serum Total Protein 6.3 L (6.4-8.9) g/dL Albumin 4.4 (3.5-5.7) g/dL Globulin 1.9 L (2.4-3.5) g/dL Albumin/Globulin Ratio 2.3 H (1.1-2.2) Urine Color Yellow (Yellow) Urine Clarity Hazy (Clear) Urine pH 7.5 (5.0-8.0) pH Units Ur Specific [place] 1.016 (1.010-1.025) Urine Protein Negative (Neg-Trace) mg/dL Urine Glucose (UA) Normal (Normal) mg/dL Urine Ketones Negative (Negative) mg/dL Urine Blood Negative (Negative) Urine Nitrite Negative (Negative) Urine Bilirubin Negative (Negative) Urine Urobilinogen Normal (Normal) mg/dL Ur Leukocyte Esterase Negative (Negative) Urine Microscopic RBC 3-5 H (0-3) per hpf Ur Squamous Epith Cells Moderate H (None-Few) per lpf Urine Bacteria None Seen (None-Few) per hpf Hyaline Casts None Seen (None-Few) per lpf Salicylates < 5.0 L (15.0-30.0) mg/dL Urine Opiates Screen (Jzbacd=492) ng/mL Acetaminophen < 1.0 L (10-30) mcg/mL Ur Barbiturates Screen (Hdhudy=791) ng/mL Ur Phencyclidine Scrn (Cutoff=25) ng/mL Ur Amphetamines Screen (Esfxuj=6375) ng/mL U Benzodiazepines Scrn (Arqdlc=316) ng/mL Urine Cocaine Screen (Cutoff= 300) ng/mL U Marijuana (THC) Screen (Cutoff = 50) ng/mL Ethyl Alcohol < 10 (0-10) mg/dL 05/27/17 Range/Units 19:36 WBC (4.3-11.1) K/mcL RBC (4.19-5.50) M/mcL Hgb (12.9-16.9) g/dL Hct (37.5-50.1) % MCV (83.0-100.0) fL MCH (28.0-33.3) pg MCHC (31.6-35.5) g/dL RDW (11.5-14.5) % Plt Count (140-400) K/mcL MPV (9.4-12.4) fL Immature Gran % (0-4) % Seg Neutrophils % % Lymphocytes % % Monocytes % % Eosinophils % % Basophils % % Neutrophils # (1.6-8.9) K/mcL Lymphocytes # (0.6-4.6) K/mcL Monocytes # (0.0-1.3) K/mcL Eosinophils # (0.0-0.6) K/mcL Basophils # (0.0-0.2) K/mcL Sodium (136-145) mEq/L Potassium (3.5-5.1) mEq/L Chloride (98-107) mEq/L Carbon Dioxide (23-29) mEq/L BUN (6-20) mg/dL Creatinine (0.70-1.30) mg/dL Est GFR ( Amer) (> 60) Est GFR (Non-Af Amer) (> 60) BUN/Creatinine Ratio (6-26) Glucose (70-105) mg/dL Calculated Osmolality (280-300) Calcium (8.6-10.3) mg/dL Total Bilirubin (0.3-1.0) mg/dL Direct Bilirubin (0.0-0.2) mg/dL Indirect Bilirubin (0.0-1.2) mg/dL AST (13-39) Units/L ALT (7-52) Units/L Alkaline Phosphatase (34-104) Units/L Serum Total Protein (6.4-8.9) g/dL Albumin (3.5-5.7) g/dL Globulin (2.4-3.5) g/dL Albumin/Globulin Ratio (1.1-2.2) Urine Color (Yellow) Urine Clarity (Clear) Urine pH (5.0-8.0) pH Units Ur Specific [place] (1.010-1.025) Urine Protein (Neg-Trace) mg/dL Urine Glucose (UA) (Normal) mg/dL Urine Ketones (Negative) mg/dL Urine Blood (Negative) Urine Nitrite (Negative) Urine Bilirubin (Negative) Urine Urobilinogen (Normal) mg/dL Ur Leukocyte Esterase (Negative) Urine Microscopic RBC (0-3) per hpf Ur Squamous Epith Cells (None-Few) per lpf Urine Bacteria (None-Few) per hpf Hyaline Casts (None-Few) per lpf Salicylates (15.0-30.0) mg/dL Urine Opiates Screen Negative (Kvobad=960) ng/mL Acetaminophen (10-30) mcg/mL Ur Barbiturates Screen Negative (Ceutiq=704) ng/mL Ur Phencyclidine Scrn Negative (Cutoff=25) ng/mL Ur Amphetamines Screen Negative (Uxconv=6326) ng/mL U Benzodiazepines Scrn Negative (Aglyuk=834) ng/mL Urine Cocaine Screen Negative (Cutoff= 300) ng/mL U Marijuana (THC) Screen Negative (Cutoff = 50) ng/mL Ethyl Alcohol (0-10) mg/dL - Radiology Data Radiology results reviewed: Yes I reviewed the patient's radiology results. - EKG Data EKG attestation: Yes I reviewed and interpreted this EKG. EKG shows normal: sinus rhythm Rate: normal, bradycardia Rhythm: NSR Interpretation: no acute changes Overdose HPI - General Chief Complaint: ED Overdose Stated Complaint: OD on B12 pills Time Seen by Provider: 05/27/17 17:57 Source: EMS Limitations: no limitations Nursing Notes Reviewed: Yes Vital Signs Reviewed: Yes - History of Present Illness HPI Narrative: 41-year-old says he took 6 B12 tablets as he was upset that the doors were slamming in his apartment building. Says he did want to hurt himself a little bit. He would like to go to a detention. Pt Subjective Complaint: intentional overdose Onset (ago): [employer] Intent: suicide attempt How Overdose Was Discovered: other (Patient called) Associated symptoms: paranoia Treatments Prior to Arrival: none - Related Data Home Medications Medication Instructions Recorded Confirmed Fluticasone Propionate Nasal 100 mcg NS DAILY 03/09/17 03/09/17 [Flonase] OLANZapine [Zyprexa] 30 mg PO HS 03/09/17 03/09/17 Previous Rx's Medication Instructions Recorded Benztropine [Cogentin] 1 mg PO BID #60 tablet 03/18/17 Docusate [Colace] 100 mg PO BID capsule 03/18/17 Latanoprost [Xalatan] 1 drop BOTH EYES HS bottle 03/18/17 OLANZapine [Zyprexa Zydis] 30 mg PO HS #105 tab.rapdis 03/18/17 Tamsulosin [Flomax] 0.4 mg PO HS capsule 03/18/17 risperiDONE [RisperDAL] 4 mg PO HS #140 tablet 03/18/17 traZODone [TraZODone] 100 mg PO HS #60 tablet 03/18/17 Ibuprofen [Motrin] 600 mg PO Q8HR PRN #20 tab 03/24/17 Penicillin VK 500 mg PO QID #40 tablet 03/24/17 Allergies Allergy/AdvReac Type Severity Reaction Status Date / Time No Known Allergies Allergy Verified 05/23/17 02:14 All systems ED: reviewed and negative except as stated. Constitutional: Denies: fever, chills, weakness, weight change Eyes: Denies: eye pain, eye discharge, vision change ENT ED: Denies: ear pain, throat pain, dental pain, hearing loss, epistaxis, congestion, dysphagia Cardiovascular: Denies: chest pain, palpitations, dyspnea on exertion, edema, syncope Respiratory: Denies: cough, dyspnea, wheezes, hemoptysis, stridor Gastrointestinal: Denies: abdominal pain, nausea, vomiting, diarrhea, constipation, hematemesis, melena, hematochezia Genitourinary: Denies: urgency, dysuria, frequency, hematuria Musculoskeletal: Denies: back pain, neck pain, arthralgia, myalgia Integumentary: Denies: rash, abrasion, lesions Neurological: Denies: headache, weakness, numbness, paresthesias, confusion, abnormal gait, vertigo Psychiatric: Reports: depression. Denies: anxiety, suicidal thoughts, homicidal thoughts, auditory hallucinations, visual hallucinations Endocrine: Denies: fatigue Hematological/Lymphatic: Denies: easy bleeding, easy bruising Allergic/Immunologic: Denies: facial swelling, urticaria Past Medical History - Past Medical History Medical history: Reports: hyperlipidemia, other Surgical history: Reports: no surgical history Psychiatric history: Reports: schizophrenia - Social History Smoking Status: Never smoker Smokeless Tobacco Status: No Alcohol use: Reports: none Drug use: Reports: none Physical Exam - General Limitations: no limitations General appearance: alert - Head Head exam: atraumatic, normocephalic, normal inspection - Eye Eye exam: Present: normal appearance, PERRL, EOMI - ENT ENT exam: normal exam, normal oropharynx, mucous membranes moist - Neck Neck exam: Present: normal inspection, full ROM, trachea midline - Chest Chest inspection: Present: normal inspection, symmetric chest wall rise - Respiratory Respiratory exam: Present: normal lung sounds bilaterally - Cardiovascular Cardiovascular exam: Present: regular rate, normal rhythm, normal heart sounds - Abdominal Exam Abdominal exam: Present: soft, Non-Tender. Absent: tenderness, distention, guarding, rebound, rigidity - Extremities Exam Extremities exam: Present: normal inspection, full ROM. Absent: tenderness, pedal edema - Expanded Lower Extremity Exam Neurovascular/Tendon exam: Absent: motor deficit, sensory deficit, tendon deficit Gait: observed and normal - Back Exam Back exam: Present: normal inspection, full ROM. Absent: tenderness - Neurological Exam Neurological exam: Present: alert, oriented X3 - Psychiatric Psychiatric exam: Present: normal affect, normal mood - Skin Skin exam: Present: warm, dry, intact, normal color Course - Consultations Consultation #1: Consult with poison control, no treatment required for the B12 ingestion Time: 18:09 Vital Signs Temperature 98.0 F 05/27/17 17:51 Pulse Rate 57 05/27/17 17:51 Respiratory Rate 16 05/27/17 17:51 Blood Pressure 109/76 05/27/17 17:51 O2 Sat by Pulse Oximetry 98 05/27/17 17:51 Temperature 98.0 F 05/27/17 17:51 Pulse Rate 57 05/27/17 17:51 Respiratory Rate 16 05/27/17 17:51 Blood Pressure 109/76 05/27/17 17:51 O2 Sat by Pulse Oximetry 98 05/27/17 17:51 Oxygen Delivery Oxygen Delivery Room Air Disposition Clinical Impression: Suicidal ideation Schizophrenia Qualifiers: Schizophrenia type: other Qualified Code(s): F20.89 - Other schizophrenia Disposition: Admitted As Inpatient Referrals: NONE,PCP [Primary Care Provider] - Forms: ED Satisfaction Letter Time of Disposition: 21:00 S.B.A.RJanusz - S.B.A.R. Recommendation: Recommendation based on pending studies, treatments, or consults S.B.A.Nita Report Given to: Dr. Urszula LaraBJanuszAMolly Repor Time: 21:00
[2017-05-27 18:35] LABS: Basophils # 0.1 K/mcL (0.0-0.2); Basophils % 0.6 %; Eosinophils # 0.2 K/mcL (0.0-0.6); Eosinophils % 2.3 %; Hematocrit 41.1 % (37.5-50.1); Hemoglobin 13.7 g/dL (12.9-16.9); Immature Granulocytes % 0.3 % (0-4); Lymphocytes # 2.2 K/mcL (0.6-4.6); Lymphocytes % 28.3 %; Mean Corpuscular HGB Conc 33.3 g/dL (31.6-35.5); Mean Corpuscular Hemoglobin 30.6 pg (28.0-33.3); Mean Corpuscular Volume 91.7 fL (83.0-100.0); Mean Platelet Volume 9.9 fL (9.4-12.4); Monocytes # 0.8 K/mcL (0.0-1.3); Monocytes % 9.7 %; Neutrophils # 4.6 K/mcL (1.6-8.9); Platelet Count 242 K/mcL (140-400); Red Blood Count 4.48 M/mcL (4.19-5.50); Red Cell Distribution Width 11.9 % (11.5-14.5); Segmented Neutrophils % 58.8 %
[2017-05-27 18:47] LABS: Albumin 4.4 g/dL (3.5-5.7); Bilirubin,Direct 0.2 mg/dL (0.0-0.2); Bilirubin,Indirect 0.4 mg/dL (0.0-1.2); Bilirubin,Total 0.6 mg/dL (0.3-1.0); Calcium 9.5 mg/dL (8.6-10.3); Carbon Dioxide 30 mEq/L (23-29); Chloride 106 mEq/L (98-107); Potassium 4.1 mEq/L (3.5-5.1); Sodium 140 mEq/L (136-145)
[2017-05-27 18:53] LABS: Alanine Aminotransferase 12 Units/L (7-52); Albumin/Globulin Ratio 2.3 (1.1-2.2); Alkaline Phosphatase 52 Units/L (34-104); Aspartate Amino Transferase 13 Units/L (13-39); BUN/Creatinine Ratio 14 (6-26); Blood Urea Nitrogen 13 mg/dL (6-20); Globulin 1.9 g/dL (2.4-3.5); Glucose 100 mg/dL (70-105); Osmolality,Calculated 290 (280-300); Total Protein 6.3 g/dL (6.4-8.9); eGFR For African Americans > 60 (> 60); eGFR For Non-African Americans > 60 (> 60)
[2017-05-27 18:58] LABS: Acetaminophen < 1.0 mcg/mL (10-30); Ethanol < 10 mg/dL (0-10); Salicylate < 5.0 mg/dL (15.0-30.0)
[2017-05-27 19:45] LABS: Bilirubin,Urine Negative (Negative); Blood,Urine Negative (Negative); Color,Urine Yellow (Yellow); Glucose,Urine (UA) Normal (Normal); Ketones,Urine Negative (Negative); Leukocyte Esterase,Urine Negative (Negative); Nitrite,Urine Negative (Negative); PH,Urine 7.5 pH Units (5.0-8.0); Protein,Urine Negative (Neg-Trace); Specific Gravity,Urine 1.016 (1.010-1.025); Urobilinogen,Urine Normal (Normal)
[2017-05-27 19:46] LABS: Bacteria,Urine None Seen per hpf (None-Few); Hyaline Casts,Urine None Seen per lpf (None-Few); Squamous Epithelial Cell,Urine Moderate per lpf (None-Few)
[2017-05-27 19:51] LABS: Amphetamine Screen,Urine Negative ng/mL (Cutoff=1000); Barbiturate Screen,Urine Negative ng/mL (Cutoff=200); Benzodiazepines Screen,Urine Negative ng/mL (Cutoff=200); Cannabinoid Screen,Urine Negative ng/mL (Cutoff = 50); Cocaine Screen,Urine Negative ng/mL (Cutoff= 300); Opiate Screen,Urine Negative ng/mL (Cutoff=300); Phencyclidine Screen,Urine Negative ng/mL (Cutoff=25)
[2017-05-27 19:53] LABS: Clarity,Urine Hazy (Clear)
[2017-05-27] MEDS ORDERED: Haloperidol Lactate 5 MG/ML VIAL IM PRN (21:41)
[2017-05-27] MEDS ORDERED: MOM Conc 10 ML UD.LIQ PO PRN (21:41)
[2017-05-27] MEDS ORDERED: *HR* LORazepam 1 MG TABLET PO PRN (21:41)
[2017-05-27] MEDS ORDERED: Mag Hydrox/Al Hydrox/Simeth 30 ML UDC PO PRN (21:41)
[2017-05-27] MEDS ORDERED: hydrOXYzine pamoate 25 MG CAPSULE PO PRN (21:41)
[2017-05-27] MEDS ORDERED: *HR* LORazepam 2 MG/ML VIAL IM PRN (21:41)
[2017-05-27] MEDS ORDERED: Acetaminophen 325 MG TABLET PO PRN (21:41)
--- NOTE | 2017-05-28 12:11 | Psychiatry History & Physical ---
Date of Encounter: 05/29/17 Time of Encounter: 11:55 History of Present Illness Patient Stated Chief Complaint: "I had the devil in me when I was really young" Medicare Admission Attestation: For traditional Medicare patients the provided hospital inpatient services are reasonable and necessary and in the case of services not specified as inpatient -only under 42 CFR 419.22 (n), that they are appropriately provided as inpatient services in accordance 42 CFR 412.3. For Critical Access Hospital the patient may reasonably be expected to be discharged or transferred to a hospital within 96 hours after admission to the Critical Access Hospital. Admitted From: Emergency Dept Plans for Post Hospital Care: Home History of Present Illness: Mr. Hunter is a 41 year old male who was admitted after being evaluated in the emergency room for increasing psychosis and a overdose attempt. Patient told me that he tried to "overdose on six vitamin B12 pills. I am sick and tired of stuff". He states that he has been having problems with the door stopper on one of his doors at his apartment the last couple weeks. He states that other people in this building often slam the doors all the time and this irritates him. "There is dope all around me at that place and I am drug-free." He states that after he took the pills that he prayed because he did not want to . He realized that if he just moved that would solve the issue. He tells me that he stopped taking his medications approximate a week to 2 weeks ago. He does not state why he stopped taking the medications. He states that he knows that David is working in his life and that he needs to watch out for this, "to stay a good Syn[employer] and focused on God". He tells me that he keeps praying because of the lesions in his head and the concerns that he is going to be sent to live in a [place]. I explained or asked him why he believes these things any states "It's just how it is". He denies any active suicidal or homicidal ideation at this time. He denies any auditory or visual hallucinations. He states that he is feeling depressed, but feels safe on the unit and is willing to restart his medications. He denies any other impulsive acts. He denies any paranoia that the [facility] or government agency is after him. He denies any ability to mind read. Past Med Surg Social Fam HX - Past Medical History Medical history: no medical history, hyperlipidemia - Past Psychiatric History Psychiatric history: Reports: prior suicide attempt, schizophrenia, previous psychiatric hospitalization Family psychiatric history: Unknown Family History of Suicide: Unknown - Past Surgical History Surgical History: no surgical history - Social History Smoking Status: Never smoker Smokeless Tobacco Status: No Alcohol use: none Drug use: none Occupational status: disabled Current living situation: Home - Independent Activity Level: Independent ambulation Recent Out of Country Travel Within the Last 8 Weeks: No Exposure or Possible Exposure to Illness During Travel: No Medications & Allergies Fluticasone Propionate Nasal [Flonase] 100 mcg NS DAILY 03/09/17 [History] Benztropine [Cogentin] 1 mg PO BID #60 tablet 03/18/17 [Rx] Docusate [Colace] 100 mg PO BID capsule 03/18/17 [Rx] OLANZapine [Zyprexa Zydis] 30 mg PO HS #105 tab.rapdis 03/18/17 [Rx] Tamsulosin [Flomax] 0.4 mg PO HS capsule 03/18/17 [Rx] risperiDONE [RisperDAL] 4 mg PO HS #140 tablet 03/18/17 [Rx] traZODone [TraZODone] 100 mg PO HS #60 tablet 03/18/17 [Rx] Ibuprofen [Motrin] 600 mg PO Q8HR PRN #20 tab 03/24/17 [Rx] Travoprost [Travatan Z] 1 drop OP DAILY 05/28/17 [History] 3 Allergy/AdvReac Type Severity Reaction Status Date / Time No Known Allergies Allergy Verified 05/23/17 02:14 Mental Status Exam Patient orientation: Yes Person, Yes Time, Yes Place, Yes Circumstance Level of alertness: Alert Patient appearance: Appropriate, Well Groomed, Well-nourished Behavior: anxious Psychomotor activity: Normal Eye contact: Maintains Eye Contact Mood description: Anxious Affect description: congruent with mood Speech pattern: Normal rate, Normal rhythm, Normal tone, Appropriate Speech volume: Normal Thought process: Circumstantial, Tangential, Disorganized Thought content: Yes Religion delusion Attention span: Capable of Focused Attention Memory description: Grossly Intact Patient reliability: Questionable Historian Intelligence estimate: Average Judgment: Limited Insight: Partial Exam - HEENT Head exam IM: Present: atraumatic Results - Vital Signs Vital signs: Temp Pulse Resp BP Pulse Ox 97.0 F L 60 16 126/74 98 05/28/17 09:00 05/28/17 09:03 05/28/17 09:00 05/28/17 09:00 05/27/17 17:51 - Labs Labs: Laboratory Last Values WBC 7.8 K/mcL (4.3-11.1) 05/27/17 18:21 RBC 4.48 M/mcL (4.19-5.50) 05/27/17 18:21 Hgb 13.7 g/dL (12.9-16.9) 05/27/17 18:21 Hct 41.1 % (37.5-50.1) 05/27/17 18:21 MCV 91.7 fL (83.0-100.0) 05/27/17 18:21 MCH 30.6 pg (28.0-33.3) 05/27/17 18:21 MCHC 33.3 g/dL (31.6-35.5) 05/27/17 18:21 RDW 11.9 % (11.5-14.5) 05/27/17 18:21 Plt Count 242 K/mcL (140-400) 05/27/17 18:21 MPV 9.9 fL (9.4-12.4) 05/27/17 18:21 Immature Gran % 0.3 % (0-4) 05/27/17 18:21 Seg Neutrophils % 58.8 % 05/27/17 18:21 Lymphocytes % 28.3 % 05/27/17 18:21 Monocytes % 9.7 % 05/27/17 18:21 Eosinophils % 2.3 % 05/27/17 18:21 Basophils % 0.6 % 05/27/17 18:21 Neutrophils # 4.6 K/mcL (1.6-8.9) 05/27/17 18:21 Lymphocytes # 2.2 K/mcL (0.6-4.6) 05/27/17 18:21 Monocytes # 0.8 K/mcL (0.0-1.3) 05/27/17 18:21 Eosinophils # 0.2 K/mcL (0.0-0.6) 05/27/17 18:21 Basophils # 0.1 K/mcL (0.0-0.2) 05/27/17 18:21 Sodium 140 mEq/L (136-145) 05/27/17 18:21 Potassium 4.1 mEq/L (3.5-5.1) 05/27/17 18:21 Chloride 106 mEq/L (98-107) 05/27/17 18:21 Carbon Dioxide 30 mEq/L (23-29) H 05/27/17 18:21 BUN 13 mg/dL (6-20) 05/27/17 18:21 Creatinine 0.93 mg/dL (0.70-1.30) 05/27/17 18:21 Est GFR ( Amer) > 60 (> 60) 05/27/17 18:21 Est GFR (Non-Af Amer) > 60 (> 60) 05/27/17 18:21 BUN/Creatinine Ratio 14 (6-26) 05/27/17 18:21 Glucose 100 mg/dL (70-105) 05/27/17 18:21 Calculated Osmolality 290 (280-300) 05/27/17 18:21 Calcium 9.5 mg/dL (8.6-10.3) 05/27/17 18:21 Total Bilirubin 0.6 mg/dL (0.3-1.0) 05/27/17 18:21 Direct Bilirubin 0.2 mg/dL (0.0-0.2) 05/27/17 18:21 Indirect Bilirubin 0.4 mg/dL (0.0-1.2) 05/27/17 18:21 AST 13 Units/L (13-39) 05/27/17 18:21 ALT 12 Units/L (7-52) 05/27/17 18:21 Alkaline Phosphatase 52 Units/L (34-104) 05/27/17 18:21 Serum Total Protein 6.3 g/dL (6.4-8.9) L 05/27/17 18:21 Albumin 4.4 g/dL (3.5-5.7) 05/27/17 18:21 Globulin 1.9 g/dL (2.4-3.5) L 05/27/17 18:21 Albumin/Globulin Ratio 2.3 (1.1-2.2) H 05/27/17 18:21 Urine Color Yellow (Yellow) 05/27/17 19:36 Urine Clarity Hazy (Clear) 05/27/17 19:36 Urine pH 7.5 pH Units (5.0-8.0) 05/27/17 19:36 Ur Specific [place] 1.016 (1.010-1.025) 05/27/17 19:36 Urine Protein Negative mg/dL (Neg-Trace) 05/27/17 19:36 Urine Glucose (UA) Normal mg/dL (Normal) 05/27/17 19:36 Urine Ketones Negative mg/dL (Negative) 05/27/17 19:36 Urine Blood Negative (Negative) 05/27/17 19:36 Urine Nitrite Negative (Negative) 05/27/17 19:36 Urine Bilirubin Negative (Negative) 05/27/17 19:36 Urine Urobilinogen Normal mg/dL (Normal) 05/27/17 19:36 Ur Leukocyte Esterase Negative (Negative) 05/27/17 19:36 Urine Microscopic RBC 3-5 per hpf (0-3) H 05/27/17 19:36 Ur Squamous Epith Cells Moderate per lpf (None-Few) H 05/27/17 19:36 Urine Bacteria None Seen per hpf (None-Few) 05/27/17 19:36 Hyaline Casts None Seen per lpf (None-Few) 05/27/17 19:36 Salicylates < 5.0 mg/dL (15.0-30.0) L 05/27/17 18:21 Urine Opiates Screen Negative ng/mL (Gslbmz=347) 05/27/17 19:36 Acetaminophen < 1.0 mcg/mL (10-30) L 05/27/17 18:21 Ur Barbiturates Screen Negative ng/mL (Yzallp=147) 05/27/17 19:36 Ur Phencyclidine Scrn Negative ng/mL (Cutoff=25) 05/27/17 19:36 Ur Amphetamines Screen Negative ng/mL (Kcsslu=6509) 05/27/17 19:36 U Benzodiazepines Scrn Negative ng/mL (Tikoin=422) 05/27/17 19:36 Urine Cocaine Screen Negative ng/mL (Cutoff= 300) 05/27/17 19:36 U Marijuana (THC) Screen Negative ng/mL (Cutoff = 50) 05/27/17 19:36 Ethyl Alcohol < 10 mg/dL (0-10) 05/27/17 18:21 - Impressions Patient was agreeable to restart his medications.. He had been on Risperdal 4 mg po q HS and Zyprexa 30 mg po q HS. I'm not sure why he is on two antipsychotics. 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 Zyprexa 10 mg po bid and Risperdal 1 mg po bid; gradually titrating up. I may try to increase the Zyprexa higher to not need a second agent of Risperdal. Patient is agreeable to this. Assessment and Plan (1) Schizophrenia Current visit: Yes Status: Acute Plan: Admit inpatient for safety and stabilization, Close observation, Suicide Precautions per unit protocol, Group Therapy, Monitor sleep, Monitor appetite Risks, benefits, side effects, alternatives discussed w/pt: Yes (restart medication) Patient agreeable to treatment: Yes Plans for Post Hospital Care : Home Estimated Length of Stay (Days): 7
[2017-05-28] MEDS: OLANZapine 10 MG TAB.RAPDIS PO SCH ×2 (12:30→20:16)
--- NOTE | 2017-05-28 14:24 | Electrocardiograph Report ---
[place] [id number] Test Date: 2017-05-27 Pat Name: Nicolas Hunter Department: 103 Room: 1A24 Gender: M Delivery Man: RENA : 1975 Requested By: Jeff Pichardo Order Number: [id number] Reading MD: Jose Sherman DO Measurements Intervals [place] Rate: 53 P: 50 GA: 197 QRS: -17 QRSD: 97 T: 50 QT: 387 QTc: 371 Interpretive Statements SINUS BRADYCARDIA Electronically Signed On 05-28-2017 14:23:04 EST by Jose Sherman DO
[2017-05-28] MEDS: risperiDONE 1 MG TABLET PO SCH (20:16)
[2017-05-28] MEDS ORDERED: risperiDONE 1 MG TABLET PO SCH (21:00)
[2017-05-28] MEDS: Latanoprost 2.5 ML BOTTLE BOTH EYES SCH (21:00)
[2017-05-28] MEDS ORDERED: traZODone 50 MG TABLET PO SCH (21:00)
[2017-05-28] MEDS ORDERED: OLANZapine 10 MG TAB.RAPDIS PO SCH (21:00)
[2017-05-29] MEDS: risperiDONE 1 MG TABLET PO SCH ×2 (08:36→20:44)
[2017-05-29] MEDS: OLANZapine 10 MG TAB.RAPDIS PO SCH ×2 (08:37→20:44)
--- NOTE | 2017-05-29 09:21 | Psychiatry Progress Note ---
Date of Encounter: 05/29/17 Time of Encounter: 09:15 Subjective Interval history: Patient tells me that he is tired this morning and does not want to get out of bed right now. He states that he felt like he had too many pills given to him last night and he does not think that he needs all of them. He told me he prayed about it. I explained to him that they were smaller doses than what he was taking outpatient and maybe they are just more pills but less medication. He states that he does not want to take the Trazodone, that he was only taking half the dose. (cutting the pills in half with a pill cutter) He asked me to stop the Trazodone. He talks about hearing pounding in his room and it irritating him. That is why he staying in his room; concerned that he will be further irritated and does not want to be out on the floor around others till he calms down. (There is no construction or pounding going on around his room and I explained this to him.) "It's Satan." He denies any other problems. States that he slept fine last night and just wants to sleep more or keep to himself right now till he calms down. Staff reported that he was not eating much yesterday. He was paranoid about his food being tampered with by others. He reported that his coffee did not taste right this morning. Objective: Exam Patient orientation: Yes Person, Yes Place, Yes Circumstance Level of alertness: Sedated (tired) Patient appearance: Appropriate, Well-nourished Additional observations: Stated he was tired and did not want to get out of bed to come talk. He asked to talk to me from the door of his room while he was in bed. There were no other patients around so it was private and confidential and I agreed to this. Behavior: calm Psychomotor activity: Normal Eye contact: Maintains Eye Contact Mood description: Depressed Affect description: congruent with mood Speech pattern: Normal rate, Normal rhythm, Normal tone Speech volume: Normal Thought process: Circumstantial Thought content: Yes Paranoid delusion, Yes Congregational delusion Perceptual disturbances: Yes Auditory hallucinations (Hears people pounding and there is no one pounding on chambers or fllor anywhere near his room.) Judgment: Fair Insight: Partial Results - Vital Signs Vital Signs: Temp Pulse Resp BP Pulse Ox 97.2 F L 96 20 115/64 98 05/29/17 08:49 05/29/17 08:49 05/29/17 08:49 05/29/17 08:49 05/27/17 17:51 Assessment and Plan (1) Schizophrenia Current visit: Yes Status: Acute Plan: Continue hospitalization, Close observation, Encourage participation in unit milieu, Group Therapy, Monitor sleep Risks, benefits, side effects, alternatives discussed w/pt: Yes (DC trazodone. Patient dose not think that he needs it) Patient agreeable to treatment: Yes Consult Discharge Plan - Plan Referrals: [facility] [Outside] - 06/04/17 10:15 am (The above appointment is with Patricia Mtz for outpatient mental health counseling and case management services. You will also see Antoinette Frederick for outpatient psychiatric assessment and medication management services on 06/24/2017 at 3:00 PM.) Rox Dumont [Advanced Practice Nurse] - 06/16/17 2:10 pm (The above appointment is with Rox Dumont for primary health care and medication management services.)
[2017-05-29] MEDS: Latanoprost 2.5 ML BOTTLE BOTH EYES SCH (20:45)
[2017-05-29] MEDS: traZODone 50 MG TABLET PO PRN (20:51)
[2017-05-30] MEDS: risperiDONE 1 MG TABLET PO SCH ×2 (08:27→20:30)
[2017-05-30] MEDS: OLANZapine 10 MG TAB.RAPDIS PO SCH ×2 (08:27→20:30)
--- NOTE | 2017-05-30 11:15 | Psychiatry Progress Note ---
Date of Encounter: 05/30/17 Time of Encounter: 11:15 Subjective Interval history: Patient states that he is feeling better being back on the medication and denies any adverse side effects. He states that he sleeping okay and he is attending some groups. Staff noticed him to be a little bit irritable and paranoid still, even in regards to getting vitals. I asked him if he were eating any better and he stated that he was "trying to eat more". I told him that I had noticed that he was not eating very much on his plate previously and was only asking for prepackaged liquids products as opposed to the open container products on his tray. He stated "yes this is a mental hospital. You never know what your food is laced with". I asked him if those concerns were lessening, he replied, "yes, but i'm still very mindful of it." He denied any active suicidal or homicidal ideation. He denied any auditory or visual hallucinations. he does not speak of jewish today nor of the devil. Objective: Exam Patient orientation: Yes Person, Yes Place, Yes Circumstance Level of alertness: Alert Patient appearance: Appropriate, Well Groomed Behavior: anxious (mildly) Psychomotor activity: Normal Eye contact: Maintains Eye Contact Mood description: Anxious Affect description: congruent with mood Speech pattern: Normal rate, Normal rhythm Speech volume: Normal Thought process: Perseveration (less) Thought content: Yes Paranoid delusion, Yes Scientologist delusion (less, no mention today) Judgment: Fair Insight: Partial Results - Vital Signs Vital Signs: Temp Pulse Resp BP Pulse Ox 97.2 F L 63 18 116/68 98 05/30/17 09:00 05/30/17 09:00 05/30/17 09:00 05/30/17 09:00 05/27/17 17:51 Assessment and Plan (1) Schizophrenia Current visit: Yes Status: Acute Plan: Continue hospitalization, Close observation, Encourage participation in unit milieu, Group Therapy, Monitor sleep Risks, benefits, side effects, alternatives discussed w/pt: Yes (Continue current medications) Patient agreeable to treatment: Yes Consult Discharge Plan - Plan Referrals: [facility] [Outside] - 06/04/17 10:15 am (The above appointment is with Patricia Mtz for outpatient mental health counseling and case management services. You will also see Antoinette Frederick for outpatient psychiatric assessment and medication management services on 06/24/2017 at 3:00 PM.) Rox Dumont [Advanced Practice Nurse] - 06/16/17 2:10 pm (The above appointment is with Rox Dumont for primary health care and medication management services.)
[2017-05-30] MEDS: traZODone 50 MG TABLET PO PRN (20:29)
[2017-05-30] MEDS: Latanoprost 2.5 ML BOTTLE BOTH EYES SCH (21:08)
[2017-05-31] MEDS: risperiDONE 1 MG TABLET PO SCH ×2 (08:43→20:33)
[2017-05-31] MEDS: OLANZapine 10 MG TAB.RAPDIS PO SCH (08:43)
--- NOTE | 2017-05-31 13:25 | Psychiatry Progress Note ---
Date of Encounter: 05/31/17 Time of Encounter: 12:50 Subjective Interval history: When I approach the patient today to ask him if he wanted to talk and how he was he told me "I'm alright". He did not want to talk to me, telling me that he was busy. When I asked him what he was busy doing, he had no response. I asked him how he was doing on the unit and if things are getting better. He told me that yesterday "I saw an segundo and it made me feel better". I asked him where he saw the Segundo and he said that the angels floating around the nurses station guiding them. Patient was unwilling to talk to me further after a prolonged pause and then walked away. Staff reported that he apologized to them earlier today for "all the whores in my life". He is eating, but not 100% . Patient is still religiously preoccupied and psychotic. He had been off his medications prior to admission and his medications are being restarted. I will continue to titrate up his Zyprexa to 15 mg PO BID today targeting his psychosis. Ultimate goal is to get them back to the medication levels he previously been on when he was stabilize prior to his noncompliance. Objective: Exam Patient orientation: Yes Place Level of alertness: Alert Patient appearance: Appropriate Behavior: anxious, uncooperative Psychomotor activity: Normal Eye contact: Fleeting Contact Mood description: Anxious, Irritable Affect description: congruent with mood Speech pattern: Normal rate, Normal rhythm, Normal tone Speech volume: Normal Thought process: Thought Blocking (??) Thought content: Yes Quaker delusion Perceptual disturbances: Yes Reacting to internal stimuli Judgment: Limited Insight: Minimal Results - Vital Signs Vital Signs: Temp Pulse Resp BP Pulse Ox 97.2 F L 54 16 121/69 98 05/31/17 09:00 05/31/17 09:00 05/31/17 09:00 05/31/17 09:00 05/27/17 17:51 Assessment and Plan (1) Schizophrenia Current visit: Yes Status: Acute Plan: Continue hospitalization, Close observation, Suicide Precautions per unit protocol, Encourage participation in unit milieu, Group Therapy, Monitor sleep, Monitor appetite Risks, benefits, side effects, alternatives discussed w/pt: Yes (Increase Zyprexa again to 15 mg po bid) Patient agreeable to treatment: Yes Qualifiers: Schizophrenia type: disorganized schizophrenia Qualified Code(s): F20.1 - Disorganized schizophrenia Consult Discharge Plan - Plan Referrals: [facility] [Outside] - 06/04/17 10:15 am (The above appointment is with Patricia Mtz for outpatient mental health counseling and case management services. You will also see Antoinette Frederick for outpatient psychiatric assessment and medication management services on 06/24/2017 at 3:00 PM.) Rox Dumont [Advanced Practice Nurse] - 06/16/17 2:10 pm (The above appointment is with Rox Dumont for primary health care and medication management services.)
[2017-05-31] MEDS: traZODone 50 MG TABLET PO PRN (20:33)
[2017-05-31] MEDS: Latanoprost 2.5 ML BOTTLE BOTH EYES SCH (20:34)
[2017-05-31] MEDS: OLANZapine 5 MG TAB.RAPDIS PO SCH (20:34)
[2017-06-01] MEDS: OLANZapine 5 MG TAB.RAPDIS PO SCH ×2 (08:06→20:23)
[2017-06-01] MEDS: risperiDONE 1 MG TABLET PO SCH ×2 (08:06→20:22)
--- NOTE | 2017-06-01 13:55 | Psychiatry Progress Note ---
Date of Encounter: 06/01/17 Time of Encounter: 14:00 Subjective Interval history: Patient tells me he is willing to talk to me today. He states he understands he was not in the best mood yesterday. When asked how he is today, he states "alright". He reports that he sleeping a lot with increase in Zyprexa. He denies any auditory/visual hallucinations. He states his mind is "slowing down quite a bit. I feel calmer". He denies being paranoid or concerned about his food, even though he is not eating much. He tells me he never eats much secondary to his appetite and not wanting to gain weight. He denies any side effects or issues with his medication. He talked to me about angels and how he is seeing them on the unit which is a good sign for him. He denies saying the devil or any evil spirits. No active thoughts of hurting himself or anybody else. Objective: Exam Patient orientation: Yes Person, Yes Place Level of alertness: Sedated Patient appearance: Appropriate Behavior: anxious Psychomotor activity: Slowed Eye contact: Fleeting Contact Mood description: Irritable (mildly, less than yesterday) Affect description: congruent with mood Speech pattern: Slowed Speech volume: Normal Thought process: Sherman, Slowed Thinking Thought content: Yes Pentecostal delusion Judgment: Limited Insight: Minimal Results - Vital Signs Vital Signs: Temp Pulse Resp BP Pulse Ox 98.2 F 62 16 120/81 98 06/01/17 08:11 06/01/17 08:11 06/01/17 08:11 06/01/17 08:11 05/27/17 17:51 Assessment and Plan (1) Schizophrenia Current visit: Yes Status: Acute Plan: Continue hospitalization, Close observation, Encourage participation in unit milieu, Group Therapy, Monitor sleep Risks, benefits, side effects, alternatives discussed w/pt: Yes (Continue Zyprexa again to 15 mg po bid) Patient agreeable to treatment: Yes Qualifiers: Schizophrenia type: disorganized schizophrenia Qualified Code(s): F20.1 - Disorganized schizophrenia Consult Discharge Plan - Plan Referrals: [facility] [Outside] - 06/04/17 10:15 am (The above appointment is with Patricia Mtz for outpatient mental health counseling and case management services. You will also see Antoinette Frederick for outpatient psychiatric assessment and medication management services on 06/24/2017 at 3:00 PM.) Rox Dumont [Advanced Practice Nurse] - 06/16/17 2:10 pm (The above appointment is with Rox Dumont for primary health care and medication management services.)
[2017-06-01] MEDS: traZODone 50 MG TABLET PO PRN (20:23)
[2017-06-01] MEDS: Latanoprost 2.5 ML BOTTLE BOTH EYES SCH (20:26)
[2017-06-02] MEDS: risperiDONE 1 MG TABLET PO SCH ×2 (09:34→21:02)
[2017-06-02] MEDS: OLANZapine 5 MG TAB.RAPDIS PO SCH ×2 (09:34→21:02)
--- NOTE | 2017-06-02 12:37 | Psychiatry Progress Note ---
Date of Encounter: 06/02/17 Time of Encounter: 10:10 Subjective Interval history: Patient tells me that he is feeling more relaxed and "getting my proper rest and eating better". He states that he is not worried about food like he was when he 1st got here. I asked him if he had seen a more angels or demons recently on the unit, (nursing has not heard him talking about anything jain in the last day). He told me no, everything is getting better. I discussed with him the possibility of simplifying his med regimen; only one medication and ask him if he knew why he was on two antipsychotics. He did not know why. I explained to him that we could potentially increase Zyprexa further and only take the Zyprexa and then taper off the Risperdal and see how he did. I explained he might be on the unit a little bit longer if he decompensated in doing this. He will consider it. He denies any other issues. He denies any auditory or visual hallucinations. He denies any thoughts of hurting himself or anybody else. Objective: Exam Patient orientation: Yes Person, Yes Place Level of alertness: Sedated (mildly) Patient appearance: Appropriate, Well Groomed Behavior: calm Psychomotor activity: Slowed Eye contact: Maintains Eye Contact Mood description: Depressed Affect description: blunted, flat Speech pattern: Normal rate, Normal rhythm, Normal tone Speech volume: Normal Thought process: Goal Oriented (in discharging) Thought content: Yes Paranoid delusion (slowing going away), Yes Scientology delusion (less, slowing going away) Judgment: Fair Insight: Partial Results - Vital Signs Vital Signs: Temp Pulse Resp BP Pulse Ox 97.5 F L 61 16 108/66 98 06/02/17 09:00 06/02/17 09:00 06/02/17 09:00 06/02/17 09:00 05/27/17 17:51 Assessment and Plan (1) Schizophrenia Current visit: Yes Status: Acute Plan: Continue hospitalization, Close observation, Suicide Precautions per unit protocol, Encourage participation in unit milieu, Group Therapy, Monitor sleep, Monitor appetite Risks, benefits, side effects, alternatives discussed w/pt: Yes (Continue Zyprexa again to 15 mg po bid) Patient agreeable to treatment: Yes (Consider simplifying med regimen: tapering off Risperal, increasing Zyprexa ) Qualifiers: Schizophrenia type: disorganized schizophrenia Qualified Code(s): F20.1 - Disorganized schizophrenia Consult Discharge Plan - Plan Referrals: [facility] [Outside] - 06/04/17 10:15 am (The above appointment is with Patricia Mtz for outpatient mental health counseling and case management services. You will also see Antoinette Frederick for outpatient psychiatric assessment and medication management services on 06/24/2017 at 3:00 PM.) Rox Dumont [Advanced Practice Nurse] - 06/16/17 2:10 pm (The above appointment is with Rox Dumont for primary health care and medication management services.)
[2017-06-02] MEDS: traZODone 50 MG TABLET PO PRN (21:02)
[2017-06-02] MEDS: Latanoprost 2.5 ML BOTTLE BOTH EYES SCH (21:06)
[2017-06-03] MEDS: OLANZapine 5 MG TAB.RAPDIS PO SCH ×2 (09:01→20:47)
[2017-06-03] MEDS: risperiDONE 1 MG TABLET PO SCH ×2 (09:01→20:46)
--- NOTE | 2017-06-03 13:41 | Psychiatry Progress Note ---
Date of Encounter: 06/03/17 Time of Encounter: 13:15 Subjective Interval history: "All of us are troublemakers at one point in our lives" When I ask him what he means by that, he tells me that when he was younger he used to do drugs have sex with girls. And then he found the Lord and things got better. He is focused on getting out and getting a job and improving his life. He talks about getting stabilized here to get home to pay his phone bill and other bills. He states will be compliant with medications. I asked him about some mild anxiety and agitation that he is experiencing, and about decreasing the Risperdal again and maximizing or increase the use of Zyprexa. He does not want to do this. He is afraid it will delay his discharge even further. I encouraged him to use Cogentin to see if it helps with his agitation. He says he does not want any more pills. I explained that I did not think he was stable at this point time to move over to [facility]. He stopped talking to me and reminded me he needed discharged to pay his bills. Objective: Exam Patient orientation: Yes Person, Yes Place, Yes Circumstance Level of alertness: Alert Patient appearance: Appropriate, Well Groomed Behavior: anxious Psychomotor activity: Normal Eye contact: Maintains Eye Contact Mood description: Anxious, Irritable Affect description: congruent with mood Speech pattern: Normal rate, Normal rhythm, Normal tone, Appropriate Speech volume: Normal Thought process: Circumstantial, [place] Thought content: Yes Intact Judgment: Limited Insight: Partial Results - Vital Signs Vital Signs: Temp Pulse Resp BP Pulse Ox 96.8 F L 70 16 128/72 98 06/03/17 09:00 06/03/17 09:00 06/03/17 09:00 06/03/17 09:00 05/27/17 17:51 Assessment and Plan (1) Schizophrenia Current visit: Yes Status: Acute Plan: Continue hospitalization, Close observation, Suicide Precautions per unit protocol, Encourage participation in unit milieu, Group Therapy, Monitor sleep Risks, benefits, side effects, alternatives discussed w/pt: Yes (Continue Zyprexa again to 15 mg po bid) Patient agreeable to treatment: Yes (He does not want to tapering off Risperal, delay discharge concern) Qualifiers: Schizophrenia type: disorganized schizophrenia Qualified Code(s): F20.1 - Disorganized schizophrenia Consult Discharge Plan - Plan Referrals: [facility] [Outside] - 06/17/17 3:00 pm (The above appointment is with Patricia Mtz for outpatient mental health counseling and case management services. You will also see Antoinette Frederick for outpatient psychiatric assessment and medication management services on 06/24/2017 at 3:00 PM.) Rox Dumont [Advanced Practice Nurse] - 06/16/17 2:10 pm (The above appointment is with Rox Dumont for primary health care and medication management services.)
[2017-06-03] MEDS: traZODone 50 MG TABLET PO PRN (20:46)
[2017-06-03] MEDS: Latanoprost 2.5 ML BOTTLE BOTH EYES SCH (20:49)
[2017-06-04] MEDS: risperiDONE 1 MG TABLET PO SCH ×2 (08:37→20:50)
[2017-06-04] MEDS: OLANZapine 5 MG TAB.RAPDIS PO SCH ×2 (08:37→20:49)
--- NOTE | 2017-06-04 13:45 | Psychiatry Progress Note ---
Date of Encounter: 06/04/17 Time of Encounter: 12:50 Subjective Interval history: Staff has noticed the patient a little agitated in the past 24 hours. He tells me he is frustrated as he is concerned about getting out and getting on with life. He is concerned his bills are due and he does not want to make a late payment as he does not want to hurt his credit rating. I discussed with him this agitation may be a side effect of medication, Risperdal, and encouraged him to use his low dose Cogentin to see if it helps relax him. He was in agreement with that. He denied any A/V hallucinations. He denied SI/SIB/HI. He shows insight and linear thought regarding paying bills and his credit report. He is eating better. No longer paranoid regarding food. No other complaints. Objective: Exam Patient orientation: Yes Person, Yes Time, Yes Place, Yes Circumstance Level of alertness: Sedated (mildly) Patient appearance: Appropriate, Well Groomed Behavior: agitated (mildly) Psychomotor activity: Normal Eye contact: Maintains Eye Contact Mood description: Anxious Affect description: congruent with mood Speech pattern: Appropriate Speech volume: Normal Thought process: Intact Thought content: Yes Intact Judgment: Fair Insight: Partial Results - Vital Signs Vital Signs: Temp Pulse Resp BP Pulse Ox 97.3 F L 61 16 106/69 98 06/04/17 08:58 06/04/17 08:58 06/04/17 08:58 06/04/17 08:58 05/27/17 17:51 Assessment and Plan (1) Schizophrenia Current visit: Yes Status: Acute Plan: Continue hospitalization, Suicide Precautions per unit protocol, Encourage participation in unit milieu, Group Therapy, Monitor sleep Risks, benefits, side effects, alternatives discussed w/pt: Yes (Encouraged im to use Cogentin, he may be experiencing Akathesia,Risperdal) Patient agreeable to treatment: Yes (He does not want to tapering off Risperal, delay discharge concern) Qualifiers: Schizophrenia type: disorganized schizophrenia Qualified Code(s): F20.1 - Disorganized schizophrenia Consult Discharge Plan - Plan Referrals: [facility] [Outside] - 06/17/17 3:00 pm (The above appointment is with Patricia Mtz for outpatient mental health counseling and case management services. You will also see Antoinette Frederick for outpatient psychiatric assessment and medication management services on 06/24/2017 at 3:00 PM.) Rox Dumont [Advanced Practice Nurse] - 06/16/17 2:10 pm (The above appointment is with Rox Dumont for primary health care and medication management services.)
[2017-06-04] MEDS: traZODone 50 MG TABLET PO PRN (20:50)
[2017-06-04] MEDS: Latanoprost 2.5 ML BOTTLE BOTH EYES SCH (20:55)
[2017-06-05] MEDS: OLANZapine 5 MG TAB.RAPDIS PO SCH (08:50)
[2017-06-05] MEDS: risperiDONE 1 MG TABLET PO SCH (08:51)
--- NOTE | 2017-06-05 10:46 | Psychiatry Progress Note ---
Date of Encounter: 06/05/17 Time of Encounter: 10:40 Subjective Interval history: Patient tells me today he is "alright. He is rambling a little bit and disorganized in his thought. He did state that after he take the extra dose Cogentin yesterday, that he felt calmer/his agitation dissipated. I discussed with him again the possibility of the Risperdal causing this agitation and encouraged him to try a higher dose Zyprexa, targeting is psychosis and disorganized thought. Nursing reported him responding to internal stimuli yesterday. I did not see that today in my evaluation. He also is reporting seeing [place], so still actively hallucinating. I explained to him that he was still not stable enough for discharge, and that he may need to have his medications adjusted further to resolve his psychosis. He is now agreeable to stopping the Risperdal and increasing the Zyprexa to be on one agent and not have to probably increase the Cogentin at this time. He is not suicidal or homicidal. Objective: Exam Patient orientation: Yes Person, Yes Place Level of alertness: Alert Patient appearance: Appropriate Behavior: anxious Psychomotor activity: Normal Eye contact: Maintains Eye Contact Mood description: Anxious Affect description: congruent with mood Speech pattern: Disorganized Speech volume: Normal Thought process: Loose Associations, Tangential Thought content: Yes Intact Judgment: Limited Insight: Minimal Results - Vital Signs Vital Signs: Temp Pulse Resp BP Pulse Ox 97.2 F L 65 18 116/71 98 06/05/17 09:00 06/05/17 09:00 06/05/17 09:00 06/05/17 09:00 05/27/17 17:51 Assessment and Plan (1) Schizophrenia Current visit: Yes Status: Acute Plan: Continue hospitalization, Close observation, Suicide Precautions per unit protocol, Encourage participation in unit milieu, Group Therapy, Monitor sleep Risks, benefits, side effects, alternatives discussed w/pt: Yes (increase Zyprexa, taper off Risperdal +akathesia) Patient agreeable to treatment: Yes ( Consented to tapering off Risperal. ) Qualifiers: Schizophrenia type: disorganized schizophrenia Qualified Code(s): F20.1 - Disorganized schizophrenia Consult Discharge Plan - Plan Referrals: [facility] [Outside] - 06/17/17 3:00 pm (The above appointment is with Patricia Mtz for outpatient mental health counseling and case management services. You will also see Antoinette Frederick for outpatient psychiatric assessment and medication management services on 06/24/2017 at 3:00 PM.) Rox Dumont [Advanced Practice Nurse] - 06/16/17 2:10 pm (The above appointment is with Rox Dumont for primary health care and medication management services.)
[2017-06-05] MEDS: OLANZapine 10 MG TAB.RAPDIS PO SCH (21:11)
[2017-06-05] MEDS: Latanoprost 2.5 ML BOTTLE BOTH EYES SCH (21:14)
[2017-06-05] MEDS: traZODone 50 MG TABLET PO PRN (21:14)
[2017-06-06] MEDS: OLANZapine 10 MG TAB.RAPDIS PO SCH ×2 (09:44→21:00)
--- NOTE | 2017-06-06 12:54 | Psychiatry Progress Note ---
Date of Encounter: 06/06/17 Time of Encounter: 12:50 Subjective Interval history: Patient tells me he is doing "alright. I will be glad when I am out of here". He is less agitated today than it was yesterday. He denies any side effects of a current medications. He denies any issues with increasing Zyprexa and is showing less agitation with the discontinuation of Risperdal. He is smiling today. He is much more linear, logical and less tangential. He talked about how he was eating more and ate 100% of his lunch. There is no signs of internal stimuli reported by staff today. There is no suicidal/homicidal ideation. He tells me "I do feel calmer". No auditory or visual hallucinations. Objective: Exam Patient orientation: Yes Person, Yes Time, Yes Place, Yes Circumstance Level of alertness: Alert Patient appearance: Appropriate, Well Groomed Behavior: calm, cooperative Psychomotor activity: Normal Eye contact: Maintains Eye Contact Mood description: Anxious (much less anxious) Affect description: congruent with mood Speech pattern: Normal rate, Normal rhythm, Normal tone, Appropriate, Disorganized (less), Rambling (not) Speech volume: Normal Thought process: Goal Oriented, Tangential (less) Thought content: Yes Intact Judgment: Fair Insight: Partial Results - Vital Signs Vital Signs: Temp Pulse Resp BP Pulse Ox 97.2 F L 58 16 110/66 98 06/06/17 09:00 06/06/17 09:00 06/06/17 09:00 06/06/17 09:00 05/27/17 17:51 Assessment and Plan (1) Schizophrenia Current visit: Yes Status: Acute Plan: Continue hospitalization, Close observation, Suicide Precautions per unit protocol, Encourage participation in unit milieu, Group Therapy, Monitor sleep, Monitor appetite (Improved eating ) Risks, benefits, side effects, alternatives discussed w/pt: Yes (Continue single agent Zyprexa) Patient agreeable to treatment: Yes Qualifiers: Schizophrenia type: disorganized schizophrenia Qualified Code(s): F20.1 - Disorganized schizophrenia Consult Discharge Plan - Plan Referrals: [facility] [Outside] - 06/17/17 3:00 pm (The above appointment is with Patricia Mtz for outpatient mental health counseling and case management services. You will also see Antoinette Frederick for outpatient psychiatric assessment and medication management services on 06/24/2017 at 3:00 PM.) Rox Dumont [Advanced Practice Nurse] - 06/16/17 2:10 pm (The above appointment is with Rox Dumont for primary health care and medication management services.)
[2017-06-06] MEDS: Latanoprost 2.5 ML BOTTLE BOTH EYES SCH (21:01)
[2017-06-07] MEDS: OLANZapine 10 MG TAB.RAPDIS PO SCH ×2 (08:48→20:26)
--- NOTE | 2017-06-07 11:26 | Psychiatry Progress Note ---
Date of Encounter: 06/07/17 Time of Encounter: 11:10 Subjective Interval history: Patient tells me "I am doing good". He states that he sleeping fine, and he feels much less irritable. He has been out on the unit more. Staff report that they do not see him responding to internal stimuli and he has been easier to work with and happier. They state that he is not agitated and is more cooperative. He is eating almost 100% of his meals. They noticed him interacting with other peers on the unit, much less paranoid. Patient states that he feels calmer. I explained to him that might be secondary to having been on the Risperdal and the side effect. "well I feel a lot better being off it". He denied any auditory hallucinations. He denied any visual hallucinations. He denied seeing any angels, demons or devils. He denies any suicidal/homicidal ideation. Objective: Exam Patient orientation: Yes Person, Yes Time, Yes Place, Yes Circumstance Level of alertness: Alert Patient appearance: Appropriate, Well Groomed, Well-nourished Behavior: calm (Happy, smiling), cooperative Psychomotor activity: Abnormal movements Mood description: Euthymic/stable Affect description: congruent with mood Speech pattern: Normal rate, Normal rhythm, Normal tone, Appropriate Speech volume: Normal Thought process: Intact, Logical, Linear, Goal Oriented Thought content: Yes Intact Judgment: Fair Insight: Partial Results - Vital Signs Vital Signs: Temp Pulse Resp BP Pulse Ox 98.1 F 85 16 90/69 98 06/07/17 09:00 06/07/17 09:00 06/07/17 09:00 06/07/17 09:00 05/27/17 17:51 Assessment and Plan (1) Schizophrenia Current visit: Yes Status: Acute Additional Plan: Hopefully will be able to discharge to [facility] on Friday as he has continued to stabilize and improve off the Risperdal and on Zyprexa singularly. Risks, benefits, side effects, alternatives discussed w/pt: Yes (Continue single agent Zyprexa) Patient agreeable to treatment: Yes Consult Discharge Plan - Plan Referrals: [facility] [Outside] - 06/17/17 3:00 pm (The above appointment is with Patricia Mtz for outpatient mental health counseling and case management services. You will also see Antoinette Frederick for outpatient psychiatric assessment and medication management services on 06/24/2017 at 3:00 PM.) Rox Dumont [Advanced Practice Nurse] - 06/16/17 2:10 pm (The above appointment is with Rox Dumont for primary health care and medication management services.)
[2017-06-07] MEDS: Latanoprost 2.5 ML BOTTLE BOTH EYES SCH (20:28)
[2017-06-08] MEDS: OLANZapine 10 MG TAB.RAPDIS PO SCH ×2 (08:22→20:51)
--- NOTE | 2017-06-08 13:41 | Psychiatry Progress Note ---
Date of Encounter: 06/08/17 Time of Encounter: 10:00 Subjective Interval history: Patient seen and evaluated this morning by a multidisciplinary treatment team, he was calm, cooperative and well related. There were no reported behavioral issues and incident overnight. He reported doing better on Zyprexa with improvement in his paranoia and depression. He is compliant with his medications and denied any noted side effects. He is sleeping and eating well. Examination negative for signs and symptoms of EPS. Patient has seen walking the hallway interacting with other patients. On review of sypptoms, he denied any mood or psychotic symptoms including AH/VH/SI/HI. Objective: Exam Patient orientation: Yes Person, Yes Time, Yes Place Level of alertness: Alert Patient appearance: Appropriate Behavior: calm, cooperative Psychomotor activity: Normal Eye contact: Maintains Eye Contact Mood description: Euthymic/stable Affect description: blunted Speech pattern: Normal rate Speech volume: Normal Thought process: Logical, Goal Oriented Judgment: Fair Insight: Full Results - Vital Signs Vital Signs: Temp Pulse Resp BP Pulse Ox 97.8 F 67 18 110/63 98 06/08/17 08:38 06/08/17 08:38 06/08/17 08:38 06/08/17 08:38 05/27/17 17:51 Consult Discharge Plan - Plan Referrals: [facility] [Outside] - 06/17/17 3:00 pm (The above appointment is with Patricia Mtz for outpatient mental health counseling and case management services. You will also see Antoinette Frederick for outpatient psychiatric assessment and medication management services on 06/24/2017 at 3:00 PM.) Rox Dumont [Advanced Practice Nurse] - 06/16/17 2:10 pm (The above appointment is with Rox Dumont for primary health care and medication management services.)
[2017-06-08] MEDS: traZODone 50 MG TABLET PO PRN (20:51)
[2017-06-08] MEDS: Latanoprost 2.5 ML BOTTLE BOTH EYES SCH (20:51)
[2017-06-09] MEDS: OLANZapine 10 MG TAB.RAPDIS PO SCH ×2 (09:05→20:57)
--- NOTE | 2017-06-09 15:20 | Psychiatry Progress Note ---
Date of Encounter: 06/09/17 Time of Encounter: 15:16 Subjective Interval history: Mr. Luo comes to see me. His in hospital garb we discussed some of his treatment. He is on 40 mg of Zyprexa yet continues to eat salads is losing weight and says he said his lowest weight 199 years. Patient did see an an hussain and on morning. He denies that he is doubtful nonetheless he feels that he can go to [facility] in the next few days. Review of Systems Constitutional: Reports: weight change. Denies: fever, chills, weakness Objective: Exam Patient orientation: Yes Person, Yes Time, Yes Place, Yes Circumstance Level of alertness: Alert Patient appearance: Unkempt Behavior: cooperative Psychomotor activity: Slowed Eye contact: Maintains Eye Contact Mood description: Anxious Affect description: incongruent with mood Speech pattern: Disorganized, Repetitive Speech volume: No variation in volume Thought process: Intact, Circumstantial, Loose Associations Thought content: Yes Zoroastrian delusion Perceptual disturbances: Yes Visual hallucinations, Yes Illusions Judgment: Limited Insight: Minimal Results - Vital Signs Vital Signs: Temp Pulse Resp BP Pulse Ox 98 F 84 16 124/95 98 06/09/17 10:54 06/09/17 10:54 06/09/17 10:54 06/09/17 10:54 05/27/17 17:51 Assessment and Plan (1) Suicidal ideation Current visit: Yes Status: Chronic Plan: Close observation, Encourage participation in unit milieu Risks, benefits, side effects, alternatives discussed w/pt: Yes Patient agreeable to treatment: Yes (2) Schizophrenia Current visit: Yes Status: Acute Plan: Continue hospitalization, Close observation, Encourage participation in unit milieu Additional Plan: Patient has failed to 1 mg of olanzapine and now 40 mg he still has psychosis still has weight loss as well as peculiar eating but still has thought disorder. However his condition is chronic so transition to [facility] may be in his best interest Risks, benefits, side effects, alternatives discussed w/pt: Yes (Continue single agent Zyprexa) Patient agreeable to treatment: Yes Qualifiers: Schizophrenia type: disorganized schizophrenia Qualified Code(s): F20.1 - Disorganized schizophrenia Consult Discharge Plan - Plan Referrals: [facility] [Outside] - 06/17/17 3:00 pm (The above appointment is with Patricia Mtz for outpatient mental health counseling and case management services. You will also see Antoinette Frederick for outpatient psychiatric assessment and medication management services on 06/24/2017 at 3:00 PM.) Rox Dumont [Advanced Practice Nurse] - 06/16/17 2:10 pm (The above appointment is with Rox Dumont for primary health care and medication management services.)
[2017-06-09] MEDS: traZODone 50 MG TABLET PO PRN (20:57)
[2017-06-09] MEDS: Latanoprost 2.5 ML BOTTLE BOTH EYES SCH (20:58)
[2017-06-10] MEDS: OLANZapine 10 MG TAB.RAPDIS PO SCH ×2 (08:40→21:31)
--- NOTE | 2017-06-10 11:59 | Psychiatry Progress Note ---
Date of Encounter: 06/10/17 Time of Encounter: 11:45 Subjective Interval history: The patient has been med compliant. However he remains religiously preoccupied. He has denied hearing voices or seeing things but he told me that he has drug and alcohol free because God. He was also observed kneeling and praying. He slept 9 hours. The patient has avoided eating salads and today I went over his lunch with them he has a hamburger I will see if he eats that. The patient believes that his prostate is deteriorating and that he cannot feel they are. The patient feels that his lower GI tract is not present and has asked for a colonoscopy. Patient has tolerated medicines I could add lamotrigine. Review of Systems Genitourinary male: Reports: urgency, dysuria, other Genitourinary female: Reports: other (see note) Objective: Exam Patient orientation: Yes Person, Yes Time, Yes Place Level of alertness: Alert Patient appearance: Appropriate Behavior: nervous Psychomotor activity: Normal Eye contact: Maintains Eye Contact Mood description: Anxious Affect description: constricted Speech pattern: Normal rhythm Speech volume: Normal Thought process: Loose Associations Thought content: Yes Somatic delusion, Yes Nihilistic delusion Judgment: Limited Insight: Minimal Results - Vital Signs Vital Signs: Temp Pulse Resp BP Pulse Ox 97.6 F 64 16 114/69 98 06/10/17 09:00 06/10/17 09:00 06/10/17 09:00 06/10/17 09:00 05/27/17 17:51 Assessment and Plan (1) Suicidal ideation Current visit: Yes Status: Chronic Risks, benefits, side effects, alternatives discussed w/pt: Yes Patient agreeable to treatment: Yes (2) Schizophrenia Current visit: Yes Status: Acute Risks, benefits, side effects, alternatives discussed w/pt: Yes (Continue single agent Zyprexa) Patient agreeable to treatment: Yes Qualifiers: Schizophrenia type: disorganized schizophrenia Qualified Code(s): F20.1 - Disorganized schizophrenia Consult Discharge Plan - Plan Referrals: [facility] [Outside] - 06/17/17 3:00 pm (The above appointment is with Patricia Mtz for outpatient mental health counseling and case management services. You will also see Antoinette Frederick for outpatient psychiatric assessment and medication management services on 06/24/2017 at 3:00 PM.) Rox Dumont [Advanced Practice Nurse] - 06/16/17 2:10 pm (The above appointment is with Rox Dumont for primary health care and medication management services.)
[2017-06-10] MEDS: lamoTRIgine 25 MG TABLET PO SCH (21:31)
[2017-06-10] MEDS: traZODone 50 MG TABLET PO PRN (21:31)
[2017-06-10] MEDS: Latanoprost 2.5 ML BOTTLE BOTH EYES SCH (21:39)
[2017-06-11] MEDS: OLANZapine 10 MG TAB.RAPDIS PO SCH ×2 (09:41→20:38)
--- NOTE | 2017-06-11 10:59 | Psychiatry Progress Note ---
Date of Encounter: 06/11/17 Time of Encounter: 10:45 Subjective Interval history: Patient was seen today. Yesterday he had mag citrate and reported no results afterwards. Nursing staff did not report any but further reports maybe pending. The patient says he has moved his bowels in 2 weeks so he agreed to a physical exam with a exercise scientist. Patient feels that there is something wrong and he said "I hope I did not catch AIDS" he is previously talked about his prostate deteriorating. He also has concerns about lower GI tract. Patient did have a hamburger yesterday at least intermittently eating although he has been known to give his food away. The patient has tolerated lamotrigine 25 mg daily at bedtime. Some irritability was 9. Patient's father called inquiring when the patient be transferred towards mental clinic. The patient was asked if he wanted a fleets enema because of his continuing concerns about constipation he did not wish to have that at this time and is hesitant to pursue that. Results - Vital Signs Vital Signs: Temp Pulse Resp BP Pulse Ox 98.0 F 66 16 105/66 98 06/10/17 21:00 06/10/17 21:00 06/10/17 21:00 06/10/17 21:00 05/27/17 17:51 Assessment and Plan (1) Suicidal ideation Current visit: Yes Status: Chronic Plan: Continue hospitalization, Close observation, Suicide Precautions per unit protocol, Encourage participation in unit milieu, Group Therapy, Monitor sleep, Monitor appetite Risks, benefits, side effects, alternatives discussed w/pt: Yes Patient agreeable to treatment: Yes (2) Schizophrenia Current visit: Yes Status: Acute Plan: Continue hospitalization, Close observation, Suicide Precautions per unit protocol, Monitor appetite Risks, benefits, side effects, alternatives discussed w/pt: Yes (Continue single agent Zyprexa) Patient agreeable to treatment: Yes Qualifiers: Schizophrenia type: disorganized schizophrenia Qualified Code(s): F20.1 - Disorganized schizophrenia Consult Discharge Plan - [facility] 3:00 pm (The above appointment is with Patricia Mtz for outpatient mental health counseling and case management services. You will also see Antoinette Frederick for outpatient psychiatric assessment and medication management services on 06/24/2017 at 3:00 PM.) Rox Dumont [Advanced Practice Nurse] - 06/16/17 2:10 pm (The above appointment is with Rox Duomnt for primary health care and medication management services.)
[2017-06-11] MEDS: lamoTRIgine 25 MG TABLET PO SCH (20:39)
[2017-06-11] MEDS: traZODone 50 MG TABLET PO PRN (20:39)
[2017-06-11] MEDS: Latanoprost 2.5 ML BOTTLE BOTH EYES SCH (21:00)
[2017-06-12] MEDS: OLANZapine 10 MG TAB.RAPDIS PO SCH ×2 (09:02→22:49)
--- NOTE | 2017-06-12 14:54 | Psychiatry Progress Note ---
Date of Encounter: 06/12/17 Time of Encounter: 14:20 Subjective Interval history: Patient was observed to sleep well at night. The patient reports sleeping well. But when asked he said that he saw white hussain last week he saw some shades of breath and he feels increased pressure behind his right eye. The patient has glaucoma and has been taking his drops in both sides. The patient is interested in leaving to go [facility]. He denies hearing voices. When asked about his health he had bit his prostate is doing okay but he feels he needs colonoscopy he says that his primary care doctor is Dr. Dailey of [facility]. The patient reports not having a bowel movement since May 27 but this is inconsistent with other measures. The patient is eating better and did eat a hamburger the other day. He notes no side effects to the medicine is been started on remote Review of Systems Eyes: Reports: eye pain Psychiatric: Reports: visual hallucinations Objective: Exam Patient orientation: Yes Person, Yes Time, Yes Place Level of alertness: Alert Patient appearance: Appropriate Behavior: cooperative Psychomotor activity: Slowed Eye contact: Maintains Eye Contact Mood description: Depressed Affect description: blunted Speech pattern: Normal rhythm, Slowed Speech volume: Normal Thought process: Linear, [place] Thought content: Yes Somatic delusion Perceptual disturbances: Yes Visual hallucinations Judgment: Limited Insight: Minimal Results - Vital Signs Vital Signs: Temp Pulse Resp BP Pulse Ox 97.8 F 62 16 128/76 98 06/12/17 09:00 06/12/17 09:00 06/12/17 09:00 06/12/17 09:00 05/27/17 17:51 Assessment and Plan (1) Suicidal ideation Current visit: Yes Status: Chronic Plan: Continue hospitalization, Close observation, Suicide Precautions per unit protocol Risks, benefits, side effects, alternatives discussed w/pt: Yes Patient agreeable to treatment: Yes (2) Schizophrenia Current visit: Yes Status: Acute Plan: Continue hospitalization, Close observation, Suicide Precautions per unit protocol, Encourage participation in unit milieu, Monitor appetite Risks, benefits, side effects, alternatives discussed w/pt: Yes (Continue single agent Zyprexa) Patient agreeable to treatment: Yes Qualifiers: Schizophrenia type: disorganized schizophrenia Qualified Code(s): F20.1 - Disorganized schizophrenia Consult Discharge Plan - Plan Referrals: [facility] [Outside] - 06/17/17 3:00 pm (You are going into mental health respite at [facility] on discharge from the hospital. The above appointment is with Patricia Mtz for outpatient mental health counseling and case management services. You will also see Antoinette Frederick for outpatient psychiatric assessment and medication management services on 06/24/2017 at 3:00 PM.) Rox Dumont [Advanced Practice Nurse] - 06/16/17 2:10 pm (The above appointment is with Rox Dumont for primary health care and medication management services.)
[2017-06-12] MEDS: lamoTRIgine 25 MG TABLET PO SCH (22:49)
[2017-06-12] MEDS: Latanoprost 2.5 ML BOTTLE BOTH EYES SCH (22:50)
[2017-06-13 02:27] VITALS: BP 116/69
[2017-06-13] MEDS: OLANZapine 10 MG TAB.RAPDIS PO SCH (09:15)
--- NOTE | 2017-06-13 09:50 | Discharge Summary ---
Date of Encounter: 06/13/17 Time of Encounter: 09:45 Diagnosis - Discharge Diagnosis (1) Suicidal ideation Status: Resolved (2) Schizophrenia Status: Acute Qualifiers: Schizophrenia type: disorganized schizophrenia Qualified Code(s): F20.1 - Disorganized schizophrenia Medications - Discharge Medications Prescriptions: Benzocaine/Menthol Kamlesh [Cepacol Sore Throat Lozenge] 1 each PO Q2H PRN 30 Days # 30 lozenge PRN Reason: Sore Throat Benztropine [Cogentin] 1 mg PO BID 30 Days #60 tablet Docusate [Colace] 100 mg PO BID 30 Days #60 capsule Docusate [Colace] 100 mg PO BID 30 Days #60 capsule hydrOXYzine pamoate [HydrOXYzine Pamoate] 25 mg PO TID PRN 30 Days #90 capsule PRN Reason: Anxiety lamoTRIgine [Lamictal] 25 mg PO HS 30 Days #30 tablet Latanoprost [Xalatan] 1 drop BOTH EYES HS 30 Days #30 bottle MOM Conc [MILK OF MAGNESIA conc] 10 ml PO HS PRN 30 Days #30 ud.liq PRN Reason: Constipation OLANZapine [Zyprexa Zydis] 20 mg PO BID 30 Days #120 tab.rapdis Tamsulosin [Flomax] 0.4 mg PO HS 30 Days #30 capsule Travoprost [Travatan Z] 1 drop OP DAILY 30 Days #30 drops traZODone [TraZODone] 50 mg PO HS PRN 30 Days #30 tablet PRN Reason: Insomnia Benzocaine/Menthol Kamlesh [Cepacol Sore Throat Lozenge] 1 each PO Q2H PRN 30 Days # 30 lozenge 06/13/17 [Rx] Benztropine [Cogentin] 1 mg PO BID 30 Days #60 tablet 06/13/17 [Rx] Docusate [Colace] 100 mg PO BID 30 Days #60 capsule 06/13/17 [Rx] Docusate [Colace] 100 mg PO BID 30 Days #60 capsule 06/13/17 [Rx] Latanoprost [Xalatan] 1 drop BOTH EYES HS 30 Days #30 bottle 06/13/17 [Rx] MOM Conc [MILK OF MAGNESIA conc] 10 ml PO HS PRN 30 Days #30 ud.liq 06/13/17 [Rx ] OLANZapine [Zyprexa Zydis] 20 mg PO BID 30 Days #120 tab.rapdis 06/13/17 [Rx] Tamsulosin [Flomax] 0.4 mg PO HS 30 Days #30 capsule 06/13/17 [Rx] Travoprost [Travatan Z] 1 drop OP DAILY 30 Days #30 drops 06/13/17 [Rx] hydrOXYzine pamoate [HydrOXYzine Pamoate] 25 mg PO TID PRN 30 Days #90 capsule 06/13/17 [Rx] lamoTRIgine [Lamictal] 25 mg PO HS 30 Days #30 tablet 06/13/17 [Rx] traZODone [TraZODone] 50 mg PO HS PRN 30 Days #30 tablet 06/13/17 [Rx] 3 Allergy/AdvReac Type Severity Reaction Status Date / Time No Known Allergies Allergy Verified 05/23/17 02:14 Provider Date of admission: 05/27/17 21:32 Primary care physician: PCP NONE Consults: 06/01/17 09:30 Consult to Pastoral Services [CONS] Routine Comment: Per pt request Discharging clinician: Joe Davis Assessment and Plan - Patient/Caregiver Discharge Instructions Activity: resume usual activities as tolerated Diet: regular diet - Follow up Plan Follow up with: [facility] [Outside] - 06/17/17 3:00 pm (You are going into mental health respite at [facility] on discharge from the hospital. The above appointment is with Patricia Mtz for outpatient mental health counseling and case management services. You will also see Antoinette Frederick for outpatient psychiatric assessment and medication management services on 06/24/2017 at 3:00 PM.) Pravin Griffin MD [Partnered Physician] - 06/16/17 8:00 am (Pt has a colonoscopy on the above date and will need to prep on Friday. Prep is being called into [facility] to [place] [facility] Pt will need to report to the endoscopy department at 8:00AM. ) Rox Dumont [Advanced Practice Nurse] - 06/16/17 2:10 pm (The above appointment is with Rox Dumont for primary health care and medication management services.) Functional capacity at discharge: independent ambulation Overall status at discharge: patient is progressing back to baseline Disposition: Home, Self-Care Hospital Course Hospital course: Mr. Hunter is a 41 year old male The patient was known to me from beginning of the hospitalization. He had been increased from 20 mg a day to 30 mg a day to finally 40 mg of olanzapine. Very little improvement in psychosis occurred. The patient had improvement suicidal ideation and no longer had thoughts of suicide. He had no intention of taking an overdose or using other means. Nonetheless patient was preoccupied with thoughts that there was something wrong with his colon that he had a deteriorating prostate that he felt empty. He also complained of Constipation yet detailed physical examination failed to yield evidence of constipation or significant evidence from exam to support his contention that he had moved his bowels since May 27. Nonetheless patient was given medicines for constipation including one dose of mag citrate. As far as we can tell this was tolerated without significant abnormality. Further evaluation by his family doctor might be helpful to determine whether ongoing constipation or other concerns are present. Patient was generally cooperative with staff he was often isolative. He reported visual hallucinations specifically seeing white hussain. The patient also reported seeing shadows red at times. He had insight into the red but not the white freddie images. Patient does have glaucoma he reported improved increased pain in the right eye but had been compliant with his eyedrops throughout the hospital stay. He was agreeable to going to a facility for outpatient care he tolerated medication as well. Time spent discussing smoking cessation with patient: 3 to 10 minutes Does patient wish to continue nicotine replacement upon disc: No - Time Spent with Patient Total time spent providing and/or coordinating discharge services: Less than 30 minutes Quality - Multiple Antipsychotics Patient discharged on 2 or more antipsychotic medications: No (This patient may require Seroquel) - Additional Details Additional Details: He was placed on lamotrigine 25 mg in the event that he is placed on clozapine in the future. Procedures - Procedures Procedures: Medication Management, Crisis Stabilization, Supportive Therapy, Group Therapy, Psychoeducational Therapy Mental Status Exam - Mental Status Exam Patient orientation: Yes Person, Yes Time, Yes Place Level of alertness: Alert Patient appearance: Appropriate, Well Groomed Behavior: calm, cooperative Eye contact: Maintains Eye Contact Mood description: Euthymic/stable Affect description: congruent with mood, flat Speech pattern: Normal rate, Normal rhythm, Normal tone Speech Volume: Soft/Quiet Thought process: Linear, Goal Oriented Thought Content: No Suicidal ideation, No Homicidal ideation, No Overt delusions , Yes Somatic delusion Perceptual Disturbances: No Auditory hallucinations, Yes Visual hallucinations Judgment: Limited Insight: Partial
== END 2017-06-13 11:25 | disposition home or self-care (01) | DRG 885 ==
LOC: EMEROO 17:50 → 1ANU 21:32 → SUATTDRO 21:32 → 1ANU 21:46
PROVIDERS: ADMIT Psychiatry & Neurology Psychiatry; ATTEND Psychiatry & Neurology Forensic Psychiatry

== ENCOUNTER 2017-10-27 21:59 | Inpatient (IN) ==
[2017-10-27 22:54] LABS: Basophils # 0.1 K/mcL (0.0-0.2); Basophils % 0.7 %; Eosinophils # 0.2 K/mcL (0.0-0.6); Eosinophils % 2.6 %; Hematocrit 40.8 % (37.5-50.1); Hemoglobin 14.3 g/dL (12.9-16.9); Immature Granulocytes % 0.1 % (0-4); Lymphocytes # 2.8 K/mcL (0.6-4.6); Lymphocytes % 41.2 %; Mean Corpuscular Hemoglobin 33.2 pg (28.0-33.3); Mean Corpuscular Volume 94.7 fL (83.0-100.0); Mean Platelet Volume 9.8 fL (9.4-12.4); Monocytes # 0.6 K/mcL (0.0-1.3); Monocytes % 8.6 %; Neutrophils # 3.2 K/mcL (1.6-8.9); Platelet Count 212 K/mcL (140-400); Red Blood Count 4.31 M/mcL (4.19-5.50); Red Cell Distribution Width 11.4 % (11.5-14.5); Segmented Neutrophils % 46.8 %
[2017-10-27 23:13] LABS: Amphetamine Screen,Urine Negative ng/mL (Cutoff=1000); Barbiturate Screen,Urine Negative ng/mL (Cutoff=200); Benzodiazepines Screen,Urine Negative ng/mL (Cutoff=200); Cannabinoid Screen,Urine Negative ng/mL (Cutoff = 50); Cocaine Screen,Urine Negative ng/mL (Cutoff= 300); Opiate Screen,Urine Negative ng/mL (Cutoff=300); Phencyclidine Screen,Urine Negative ng/mL (Cutoff=25)
[2017-10-27 23:14] LABS: Acetaminophen < 10 mcg/mL (10-20); Alanine Aminotransferase 26 Units/L (7-52); Albumin 4.5 g/dL (3.5-5.7); Albumin/Globulin Ratio 1.8 (1.1-2.2); Alkaline Phosphatase 44 Units/L (34-104); Aspartate Amino Transferase 17 Units/L (13-39); BUN/Creatinine Ratio 18 (6-26); Bilirubin,Direct 0.1 mg/dL (0.0-0.2); Bilirubin,Indirect 0.7 mg/dL (0.0-1.2); Bilirubin,Total 0.8 mg/dL (0.3-1.0); Blood Urea Nitrogen 19 mg/dL (6-20); Calcium 9.5 mg/dL (8.6-10.3); Carbon Dioxide 24 mEq/L (23-29); Chloride 109 mEq/L (98-107); Ethanol < 10 mg/dL (Less than 10); Globulin 2.5 g/dL (2.4-3.5); Glucose 90 mg/dL (70-105); Osmolality,Calculated 294 (280-300); Potassium 3.7 mEq/L (3.5-5.1); Salicylate < 2.5 mg/dL (15.0-30.0); Sodium 141 mEq/L (136-145); eGFR For African Americans > 60 (> 60); eGFR For Non-African Americans > 60 (> 60)
[2017-10-27 23:19] LABS: Color,Urine Yellow (Yellow)
[2017-10-27 23:20] LABS: Bilirubin,Urine Negative (Negative); Blood,Urine Negative (Negative); Clarity,Urine Cloudy (Clear); Glucose,Urine (UA) Normal (Normal); Ketones,Urine Negative (Negative); Protein,Urine Negative (Neg-Trace); Specific Gravity,Urine 1.017 (1.010-1.025)
[2017-10-27 23:21] LABS: Leukocyte Esterase,Urine Negative (Negative); Nitrite,Urine Negative (Negative); Urobilinogen,Urine Normal (Normal)
[2017-10-27 23:26] LABS: Thyroid Stimulating Hormone 0.436 mcIU/mL (0.340-5.600)
[2017-10-27 23:27] LABS: Squamous Epithelial Cell,Urine Moderate per lpf (None-Few); WBC,Urine 0-3 per hpf (0-3)
[2017-10-27 23:28] LABS: Bacteria,Urine None Seen per hpf (None-Few)
[2017-10-27 23:39] LABS: Calcium Oxalate Crystals,Urine Present
--- NOTE | 2017-10-28 00:14 | Emergency Department Note ---
Disposition Clinical Impression: Bradycardia Disposition: Admitted As Inpatient Condition: Fair General Adult HPI - General Chief complaint: ED General Medical Stated complaint: "Not Feeling Well/Wt. Loss" Time Seen by Provider: 10/27/17 22:20 Source: patient Limitations: no limitations Nursing Notes Reviewed: Yes Vital Signs Reviewed: Yes - History of Present Illness HPI Narrative: 42-year-old male with a history of schizophrenia who presented with concern for weight loss as well as wanting to have his bladder scraped out from the inside. He has erratic and poor cognitive thought process so she with underlying psychiatric illness and schizophrenia. His mental status is alert but his thoughts are erratic and at this point he does seem like he would be a danger to himself if discharged in the emergency department. During triage she was subsequent found have bradycardia. He is not on any beta blocking medication or any other cardiac medication. He admits that he is schizophrenic but does not want to use that" tidal". He has no fever, chills, night sweats. General: No acute distress HEENT: Pupils equal and reactive to light, extraoccular muscle movement is normal, TMS are clear bilaterally. Heart: RRR, No murmor rub or gallop Lungs: lungs clear, no wheezing, rales or ronchi. ABD: SNT, no focal areas or tenderness, no guarding or rebound tenderness. Extremities: No cyanosis, clubbing or edema Neuro: CN 2-12 in tact, no focal deficit. strength 5/5. Medical decision making I will place the patient on a medical hold/psychiatric hold as I feel he would be a danger to himself if he went home. He is talking erratically and speaking about wanting to be a piece of cheese and also stating that his penis is very fleshy and asking me if I smoke the adams as well as stating that there is drug smells everywhere. He does have subsequent bradycardia. He denies any Ingestion. I spoke with the on-call drop wirer recommending admission for workup of bradycardia. He is not condition athletes I would suspect that his heart rate of 30 is not appropriate given his body habitus or underlying cardiovascular help. We give her previous EKG that suggest that he has normal heart rate her previous examinations with heart rates in the 70s. Heart rate of 30 bpm would represent a change for him at this point. Cardiac enzymes as well as elect to lites are normal. TSH was checked and normal. The patient will be admitted to the hospital for further management of bradycardia. Cardiac consultation was placed. Pain Scale: 0 - Related Data Home Medications Medication Instructions Recorded Confirmed Megestrol Acetate 20 mg PO BID 10/28/17 10/28/17 Previous Rx's Medication Instructions Recorded OLANZapine [Zyprexa Zydis] 20 mg PO BID 30 Days #120 06/13/17 tab.rapdis Travoprost [Travatan Z] 1 drop OP DAILY 30 Days #30 drops 06/13/17 lamoTRIgine [Lamictal] 25 mg PO HS 30 Days #30 tablet 06/13/17 traZODone [TraZODone] 50 mg PO HS PRN 30 Days #30 tablet 06/13/17 Docusate [Colace] 100 mg PO DAILY #30 capsule 08/21/17 risperiDONE [RisperDAL] 2 mg PO DAILY 30 Days #30 tablet 10/30/17 Allergies Allergy/AdvReac Type Severity Reaction Status Date / Time No Known Allergies Allergy Verified 10/28/17 09:05 All systems ED: reviewed and negative except as stated. Review of Systems: As Per HPI Past Medical History - Past Medical History Medical history: Reports: hyperlipidemia Surgical history: Reports: no surgical history Psychiatric history: Reports: prior suicide attempt, schizophrenia, previous psychiatric hospitalization - Social History Smoking Status: Never smoker Smokeless Tobacco Status: No Alcohol use: Reports: none Drug use: Reports: none Physical Exam - General Limitations: no limitations General appearance: alert Course Vital Signs Temperature 98.1 F 10/27/17 22:08 Pulse Rate 41 10/27/17 22:08 Respiratory Rate 20 10/27/17 22:08 Blood Pressure 103/61 10/27/17 22:08 O2 Sat by Pulse Oximetry 99 10/27/17 22:08 Temperature 97.8 F 10/30/17 10:48 Pulse Rate 66 10/30/17 10:48 Respiratory Rate 18 10/30/17 10:48 Blood Pressure 103/70 10/30/17 10:48 O2 Sat by Pulse Oximetry 97 10/30/17 10:48 Oxygen Delivery Oxygen Delivery Room Air Medical Decision Making - Lab Data Result diagrams: 10/28/17 06:18 10/28/17 06:18 Lab Results 10/27/17 10/27/17 10/27/17 Range/Units 22:35 22:45 22:45 WBC 6.9 (4.3-11.1) K/mcL RBC 4.31 (4.19-5.50) M/mcL Hgb 14.3 (12.9-16.9) g/dL Hct 40.8 (37.5-50.1) % MCV 94.7 (83.0-100.0) fL MCH 33.2 (28.0-33.3) pg MCHC 35.0 (31.6-35.5) g/dL RDW 11.4 L (11.5-14.5) % Plt Count 212 (140-400) K/mcL MPV 9.8 (9.4-12.4) fL Immature Gran % 0.1 (0-4) % Seg Neutrophils % 46.8 % Lymphocytes % 41.2 % Monocytes % 8.6 % Eosinophils % 2.6 % Basophils % 0.7 % Neutrophils # 3.2 (1.6-8.9) K/mcL Lymphocytes # 2.8 (0.6-4.6) K/mcL Monocytes # 0.6 (0.0-1.3) K/mcL Eosinophils # 0.2 (0.0-0.6) K/mcL Basophils # 0.1 (0.0-0.2) K/mcL Sodium 141 (136-145) mEq/L Potassium 3.7 (3.5-5.1) mEq/L Chloride 109 H (98-107) mEq/L Carbon Dioxide 24 (23-29) mEq/L BUN 19 (6-20) mg/dL Creatinine 1.07 (0.70-1.30) mg/dL Est GFR ( Amer) > 60 (> 60) Est GFR (Non-Af Amer) > 60 (> 60) BUN/Creatinine Ratio 18 (6-26) Glucose 90 (70-105) mg/dL Calculated Osmolality 294 (280-300) Calcium 9.5 (8.6-10.3) mg/dL Total Bilirubin 0.8 (0.3-1.0) mg/dL Direct Bilirubin 0.1 (0.0-0.2) mg/dL Indirect Bilirubin 0.7 (0.0-1.2) mg/dL AST 17 (13-39) Units/L ALT 26 (7-52) Units/L Alkaline Phosphatase 44 (34-104) Units/L Troponin I (< 0.04) ng/mL Serum Total Protein 7.0 (6.4-8.9) g/dL Albumin 4.5 (3.5-5.7) g/dL Globulin 2.5 (2.4-3.5) g/dL Albumin/Globulin Ratio 1.8 (1.1-2.2) TSH 0.436 (0.340-5.600) mcIU/mL Urine Color (Yellow) Urine Clarity (Clear) Urine pH (5.0-8.0) pH Units Ur Specific [place] (1.010-1.025) Urine Protein (Neg-Trace) mg/dL Urine Glucose (UA) (Normal) mg/dL Urine Ketones (Negative) mg/dL Urine Blood (Negative) Urine Nitrite (Negative) Urine Bilirubin (Negative) Urine Urobilinogen (Normal) mg/dL Ur Leukocyte Esterase (Negative) Urine Microscopic RBC (0-3) per hpf Urine Microscopic WBC (0-3) per hpf Ur Squamous Epith Cells (None-Few) per lpf Calcium Oxalate Crystal Urine Bacteria (None-Few) per hpf Salicylates < 2.5 L (15.0-30.0) mg/dL Urine Opiates Screen Negative (Tmiorr=042) ng/mL Acetaminophen < 10 L (10-20) mcg/mL Ur Barbiturates Screen Negative (Ajnfaf=724) ng/mL Ur Phencyclidine Scrn Negative (Cutoff=25) ng/mL Ur Amphetamines Screen Negative (Qmsqqe=8767) ng/mL U Benzodiazepines Scrn Negative (Ervpts=007) ng/mL Urine Cocaine Screen Negative (Cutoff= 300) ng/mL U Marijuana (THC) Screen Negative (Cutoff = 50) ng/mL Ur Drug Screen Interp See Below Ethyl Alcohol < 10 (Less than 10) mg/dL 10/27/17 10/27/17 10/28/17 Range/Units 22:45 22:50 06:18 WBC 7.0 (4.3-11.1) K/mcL RBC 4.16 L (4.19-5.50) M/mcL Hgb 13.8 (12.9-16.9) g/dL Hct 39.4 (37.5-50.1) % MCV 94.7 (83.0-100.0) fL MCH 33.2 (28.0-33.3) pg MCHC 35.0 (31.6-35.5) g/dL RDW 11.5 (11.5-14.5) % Plt Count 207 (140-400) K/mcL MPV 9.8 (9.4-12.4) fL Immature Gran % (0-4) % Seg Neutrophils % % Lymphocytes % % Monocytes % % Eosinophils % % Basophils % % Neutrophils # (1.6-8.9) K/mcL Lymphocytes # (0.6-4.6) K/mcL Monocytes # (0.0-1.3) K/mcL Eosinophils # (0.0-0.6) K/mcL Basophils # (0.0-0.2) K/mcL Sodium (136-145) mEq/L Potassium (3.5-5.1) mEq/L Chloride (98-107) mEq/L Carbon Dioxide (23-29) mEq/L BUN (6-20) mg/dL Creatinine (0.70-1.30) mg/dL Est GFR ( Amer) (> 60) Est GFR (Non-Af Amer) (> 60) BUN/Creatinine Ratio (6-26) Glucose (70-105) mg/dL Calculated Osmolality (280-300) Calcium (8.6-10.3) mg/dL Total Bilirubin (0.3-1.0) mg/dL Direct Bilirubin (0.0-0.2) mg/dL Indirect Bilirubin (0.0-1.2) mg/dL AST (13-39) Units/L ALT (7-52) Units/L Alkaline Phosphatase (34-104) Units/L Troponin I < 0.03 (< 0.04) ng/mL Serum Total Protein (6.4-8.9) g/dL Albumin (3.5-5.7) g/dL Globulin (2.4-3.5) g/dL Albumin/Globulin Ratio (1.1-2.2) TSH (0.340-5.600) mcIU/mL Urine Color Yellow (Yellow) Urine Clarity Cloudy A (Clear) Urine pH 6.0 (5.0-8.0) pH Units Ur Specific [place] 1.017 (1.010-1.025) Urine Protein Negative (Neg-Trace) mg/dL Urine Glucose (UA) Normal (Normal) mg/dL Urine Ketones Negative (Negative) mg/dL Urine Blood Negative (Negative) Urine Nitrite Negative (Negative) Urine Bilirubin Negative (Negative) Urine Urobilinogen Normal (Normal) mg/dL Ur Leukocyte Esterase Negative (Negative) Urine Microscopic RBC 5-15 H (0-3) per hpf Urine Microscopic WBC 0-3 (0-3) per hpf Ur Squamous Epith Cells Moderate H (None-Few) per lpf Calcium Oxalate Crystal Present Urine Bacteria None Seen (None-Few) per hpf Salicylates (15.0-30.0) mg/dL Urine Opiates Screen (Ghkgqk=258) ng/mL Acetaminophen (10-20) mcg/mL Ur Barbiturates Screen (Pjjxlb=852) ng/mL Ur Phencyclidine Scrn (Cutoff=25) ng/mL Ur Amphetamines Screen (Izospc=0719) ng/mL U Benzodiazepines Scrn (Jeorfz=289) ng/mL Urine Cocaine Screen (Cutoff= 300) ng/mL U Marijuana (THC) Screen (Cutoff = 50) ng/mL Ur Drug Screen Interp Ethyl Alcohol (Less than 10) mg/dL 10/28/17 Range/Units 06:18 WBC (4.3-11.1) K/mcL RBC (4.19-5.50) M/mcL Hgb (12.9-16.9) g/dL Hct (37.5-50.1) % MCV (83.0-100.0) fL MCH (28.0-33.3) pg MCHC (31.6-35.5) g/dL RDW (11.5-14.5) % Plt Count (140-400) K/mcL MPV (9.4-12.4) fL Immature Gran % (0-4) % Seg Neutrophils % % Lymphocytes % % Monocytes % % Eosinophils % % Basophils % % Neutrophils # (1.6-8.9) K/mcL Lymphocytes # (0.6-4.6) K/mcL Monocytes # (0.0-1.3) K/mcL Eosinophils # (0.0-0.6) K/mcL Basophils # (0.0-0.2) K/mcL Sodium 140 (136-145) mEq/L Potassium 3.7 (3.5-5.1) mEq/L Chloride 109 H (98-107) mEq/L Carbon Dioxide 25 (23-29) mEq/L BUN 18 (6-20) mg/dL Creatinine 0.86 (0.70-1.30) mg/dL Est GFR ( Amer) > 60 (> 60) Est GFR (Non-Af Amer) > 60 (> 60) BUN/Creatinine Ratio 21 (6-26) Glucose 91 (70-105) mg/dL Calculated Osmolality 291 (280-300) Calcium 9.0 (8.6-10.3) mg/dL Total Bilirubin (0.3-1.0) mg/dL Direct Bilirubin (0.0-0.2) mg/dL Indirect Bilirubin (0.0-1.2) mg/dL AST (13-39) Units/L ALT (7-52) Units/L Alkaline Phosphatase (34-104) Units/L Troponin I < 0.03 (< 0.04) ng/mL Serum Total Protein (6.4-8.9) g/dL Albumin (3.5-5.7) g/dL Globulin (2.4-3.5) g/dL Albumin/Globulin Ratio (1.1-2.2) TSH (0.340-5.600) mcIU/mL Urine Color (Yellow) Urine Clarity (Clear) Urine pH (5.0-8.0) pH Units Ur Specific [place] (1.010-1.025) Urine Protein (Neg-Trace) mg/dL Urine Glucose (UA) (Normal) mg/dL Urine Ketones (Negative) mg/dL Urine Blood (Negative) Urine Nitrite (Negative) Urine Bilirubin (Negative) Urine Urobilinogen (Normal) mg/dL Ur Leukocyte Esterase (Negative) Urine Microscopic RBC (0-3) per hpf Urine Microscopic WBC (0-3) per hpf Ur Squamous Epith Cells (None-Few) per lpf Calcium Oxalate Crystal Urine Bacteria (None-Few) per hpf Salicylates (15.0-30.0) mg/dL Urine Opiates Screen (Alnamc=307) ng/mL Acetaminophen (10-20) mcg/mL Ur Barbiturates Screen (Pidadw=471) ng/mL Ur Phencyclidine Scrn (Cutoff=25) ng/mL Ur Amphetamines Screen (Jngnlr=1015) ng/mL U Benzodiazepines Scrn (Dtathc=993) ng/mL Urine Cocaine Screen (Cutoff= 300) ng/mL U Marijuana (THC) Screen (Cutoff = 50) ng/mL Ur Drug Screen Interp Ethyl Alcohol (Less than 10) mg/dL
[2017-10-28] MEDS ORDERED: Acetaminophen 325 MG TABLET PO PRN (06:05)
[2017-10-28] MEDS ORDERED: Naloxone 0.4 MG/ML INJ IVP PRN (06:05)
--- NOTE | 2017-10-28 06:12 | Internal Med History&Physical ---
Date of Encounter: 10/28/17 Time of Encounter: 03:30 Internal Medicine - H&P: HPI Chief complaint: Bradycardia, acute encephalopathy Admitted From: Home Plans for Post Hospital Care: Home History of present illness: Mr. Hunter is a 42 year old male Patient uncooperative with exam, did not answer questions clearly. In ER he was found to have bradycardia, with a pulse in the 30s. He is on no known medication that would cause this. TSH was checked and it was also normal. Called to the on-call assistant foreman was made, and he was recommended to be admitted for bradycardia workup. Patient initially presented to the ER for concerns of weight loss, he later referred to himself as a piece of cheese, and had various comments about his genitals. His conversations are very bizarre. When I asked him what he did prior to coming to the ER he said "it is windy today." The remainder of my questions he answered with I do not know. Past Med Surg Social Fam HX - Past Medical History Medical history: hyperlipidemia Additional medical history: glaucoma Psychiatric history: prior suicide attempt, schizophrenia, previous psychiatric hospitalization - Past Surgical History Surgical History: no surgical history - Social History Smoking Status: Never smoker Smokeless Tobacco Status: No Alcohol use: none Drug use: none Internal Medicine - H&P: Meds Benzocaine/Menthol Kamlesh [Cepacol Sore Throat Lozenge] 1 each PO Q2H PRN 30 Days # 30 lozenge 06/13/17 [Rx] Latanoprost [Xalatan] 1 drop BOTH EYES HS 30 Days #30 bottle 06/13/17 [Rx] MOM Conc [MILK OF MAGNESIA conc] 10 ml PO HS PRN 30 Days #30 ud.liq 06/13/17 [Rx ] OLANZapine [Zyprexa Zydis] 20 mg PO BID 30 Days #120 tab.rapdis 06/13/17 [Rx] Tamsulosin [Flomax] 0.4 mg PO HS 30 Days #30 capsule 06/13/17 [Rx] Travoprost [Travatan Z] 1 drop OP DAILY 30 Days #30 drops 06/13/17 [Rx] hydrOXYzine pamoate [HydrOXYzine Pamoate] 25 mg PO TID PRN 30 Days #90 capsule 06/13/17 [Rx] lamoTRIgine [Lamictal] 25 mg PO HS 30 Days #30 tablet 06/13/17 [Rx] traZODone [TraZODone] 50 mg PO HS PRN 30 Days #30 tablet 06/13/17 [Rx] Docusate [Colace] 100 mg PO DAILY #30 capsule 08/21/17 [Rx] Polyethylene Glycol 3350 [MiraLAX Powder Bulk 17.9 Oz] 17 gm PO DAILY #30 powder 08/21/17 [Rx] 3 Allergy/AdvReac Type Severity Reaction Status Date / Time No Known Allergies Allergy Verified 09/17/17 15:56 All Systems PM: A 10-system review of systems was performed and is negative for pertinent findings except as documented above in the HPI. - Constitutional Vitals: Temp Pulse Resp BP Pulse Ox 98.6 F 37 14 100/65 100 10/28/17 03:33 10/28/17 03:33 10/28/17 03:33 10/28/17 03:33 10/28/17 03:33 General appearance: Present: pleasant, no acute distress. Absent: cooperative - Head Additional comments: Partially shaved otherwise atraumatic normal cephalic. - Eye Eye exam: Present: EOMI, normal appearance - Neck Neck exam general surgery: Absent: tenderness - Respiratory Respiratory exam: Present: CTAB. Absent: respiratory distress, wheezes, tachypnea - Cardiovascular Cardiovascular exam: Present: bradycardia, RRR. Absent: diastolic murmur, systolic murmur - GI/Abdominal GI/Abdominal exam: Present: normal bowel sounds. Absent: firm, guarding, tenderness - Extremities Exam Extremities exam: Present: warm, radial pulses palpable and symmetrical. Absent : calf tenderness, tenderness - Neurological Exam Neurological exam: Present: alert, oriented X3, strengths equal and symetr throughout. Absent: motor sensory deficit, facial droop, speech deficit - Psychiatric Psychiatric exam: Absent: agitated, anxious - Skin Skin exam: Present: dry, normal color, warm Internal Med - H&P Results - Labs CBC & Chem 7: 10/27/17 22:45 10/27/17 22:45 - Assessment and plan (1) Bradycardia Current Visit: Yes Status: Acute Assessment and plan: No known cause, patient not reliably taking medications, urine tox screen was negative. No known history of low heart rate, but patient is poor historian. TSH is normal. Patient remained in bradycardia for most of the night, no distress. A quick review of his previous ER documentation did not seem to show heart rates as low as this. Some previous visits his heart rate was in the 50- 60 range. Monitor overnight Consult cardiology in the morning. Consider atropine if unstable. Continue to monitor troponins. (2) Schizophrenia Current Visit: No Status: Acute Assessment and plan: Previously documented as schizophrenic. Patient not reliably taking meds. Consult psych when medically stable from cardiac standpoint. Qualifiers: Schizophrenia type: unspecified Qualified Code(s): F20.9 - Schizophrenia, unspecified - Time Spent With Patient Total time spent is greater than 50% in coordination of care (as documented) at patient's floor/unit and/or counseling patient: Greater than 35 minutes
[2017-10-28 06:27] LABS: Hematocrit 39.4 % (37.5-50.1); Hemoglobin 13.8 g/dL (12.9-16.9); Mean Corpuscular Hemoglobin 33.2 pg (28.0-33.3); Mean Corpuscular Volume 94.7 fL (83.0-100.0); Mean Platelet Volume 9.8 fL (9.4-12.4); Platelet Count 207 K/mcL (140-400); Red Blood Count 4.16 M/mcL (4.19-5.50); Red Cell Distribution Width 11.5 % (11.5-14.5)
--- NOTE | 2017-10-28 06:42 | Electrocardiograph Report ---
[address] [place] [address] Test Date: 2017-10-27 Pat Name: Nicolas Hunter Department: 104 Room: 2A12 Gender: M Case Management Rn: ANIYAH : 1975 Requested By: Jose Alfredo Valera Order Number: [id number] Reading MD: Awais Stewart Measurements Intervals [place] Rate: 37 P: OR: 0 QRS: -18 QRSD: 99 T: 46 QT: 442 QTc: 356 Interpretive Statements SINUS BRADYCARDIA INCOMPLETE RIGHT BUNDLE BRANCH BLOCK Electronically Signed On 10-28-2017 6:40:15 EDT by Awais Stewart
[2017-10-28 06:48] LABS: BUN/Creatinine Ratio 21 (6-26); Blood Urea Nitrogen 18 mg/dL (6-20); Carbon Dioxide 25 mEq/L (23-29); Chloride 109 mEq/L (98-107); Glucose 91 mg/dL (70-105); Osmolality,Calculated 291 (280-300); Potassium 3.7 mEq/L (3.5-5.1); Sodium 140 mEq/L (136-145); eGFR For African Americans > 60 (> 60); eGFR For Non-African Americans > 60 (> 60)
[2017-10-28 06:55] LABS: Troponin I < 0.03 ng/mL (< 0.04)
--- NOTE | 2017-10-28 09:22 | Cardiology Consult Note ---
Addendum entered and electronically signed by Curtis Hutson CNP 10/28/17 14:30 : Records reviewed. Noted that home medication list may be incorrect. Last cardiology OV hydroxizine and trazadone are not listed. Also noted that there is concern for non-compliance with medications. Continue to monitor. TTE and stress test pending. Original Note: <Curtis Hutson - Last Filed: 10/28/17 09:38> Date of Encounter: 10/28/17 Time of Encounter: 09:10 Assessment and Plan (1) Bradycardia Current Visit: Yes Status: Acute Sinus bradycardia. EKG shows sinus bradycardia with incomplete RBBB, QT/QTc 442 /356, QRS 99. Telemetry review shows vg HR 37 bpm. No pauses or heart block seen. Admits to dizziness with standing at times. C/o weakness and fatigue in relation to significant weight loss. Currently b/p is stable. No significant symptoms at rest. Electrolytes are normal. TSH is normal. TTE 2012- preserved EF. No significant valvular disease. Stress test 2013- negative for ischemia. Medication review: Trazadone causes bradycardia in less than 2% of its patients. Hydroxizine can cause significant bradycardia according to [place] guidelines. Recommend psyciatric review of medications for adjustment. Recommend stress test and TTE as previously recommended. Can consider stress test out-pt if HR improves. Unable to complete stress test today due to patient eating. Discussion w patient/family: The assessment and plan as outlined above was discussed with the patient and/or family members who expressed understanding and agreement. All questions were answered. Thank you for involving us in the care of your patient. Please call with any questions. History of Present Illness Consult date: 10/28/17 Requesting physician: Andrey Zhang Consult reason: Bradycardia Chief complaint: Weight loss, weakness History of present illness: Mr. Hunter is a 42 year old male with past medical history of bipolar and schizophrenia who presents with the c/o 40-50 lb weight loss in the last 8 months and weakness. He states he is not eating due to stress and he just needs hospitalized. He admits to thinking of hurting himself or someone but states he won't do anything. He admits to dizziness on standing at times. Denies dizziness at rest or syncope. Cardiology consulted when he was seen to have bradycardia with HR in the 30-40's while awake. He was seen 10/02/17 by cardiology , Dr. Stewart, who ordered a stress test and holter. He states he did not feel like completing it. No known history of CAD. He was also seen in 2016 for bradycardia and orthostasis. Past Med Surg Social Fam HX - Past Medical History Source: patient Medical history: non-contributory Additional medical history: glaucoma Psychiatric history: prior suicide attempt, schizophrenia, previous psychiatric hospitalization - Past Surgical History Surgical History: no surgical history - Social History Smoking Status: Never smoker Smokeless Tobacco Status: No Alcohol use: none Drug use: none Medications and Allergies OLANZapine [Zyprexa Zydis] 20 mg PO BID 30 Days #120 tab.rapdis 06/13/17 [Rx] Travoprost [Travatan Z] 1 drop OP DAILY 30 Days #30 drops 06/13/17 [Rx] hydrOXYzine pamoate [HydrOXYzine Pamoate] 25 mg PO TID PRN 30 Days #90 capsule 06/13/17 [Rx] lamoTRIgine [Lamictal] 25 mg PO HS 30 Days #30 tablet 06/13/17 [Rx] traZODone [TraZODone] 50 mg PO HS PRN 30 Days #30 tablet 06/13/17 [Rx] Docusate [Colace] 100 mg PO DAILY #30 capsule 08/21/17 [Rx] Benztropine [Cogentin] 1 mg PO BID 10/28/17 [History] Megestrol Acetate 20 mg PO BID 10/28/17 [History] 3 Allergy/AdvReac Type Severity Reaction Status Date / Time No Known Allergies Allergy Verified 10/28/17 09:05 All Systems Review: The remainder of the systems were reviewed and are negative Physical Examination Vital Signs, Last 4 Hours Temp Pulse Resp BP Pulse Ox 10/28/17 07:05 97.6 F 34 16 134/87 100 General: Conversant, No Apparent Distress HEENT: Atraumatic, Normocephaly, Mucus Membranes Moist Neck: No JVD, Normal carotid pulses Cardiac: Reg Rate and Rhythm, Normal S1 and S2, No Murmur Lungs: Normal Breath Sounds, No Wheeze, Rales, Rhonchi Neuro: Alert and responsive, No focal deficits noted Abdomen: Soft, Non-Tender Skin: No rashes noted on visualized skin Musculoskeletal: No Chest Wall Tenderness Extremities: No Clubbing, No Cyanosis, No Edema, Normal Pulses Results 10/28/17 06:18 07 06:18 Lab Results 10/28/17 10/28/17 06:18 06:18 WBC 7.0 Hgb 13.8 Hct 39.4 Plt Count 207 Sodium 140 Potassium 3.7 Chloride 109 H Carbon Dioxide 25 BUN 18 Creatinine 0.86 Glucose 91 Calcium 9.0 Troponin I < 0.03 - Imaging and Cardiology Echo: pending - EKG Interpretation EKG results cardiology: personally reviewed Consult Discharge Plan - Plan Referrals: Victoriano Luu MD [Primary Care Provider] - (web request sent on 10/28/17) <Thomas Bird - Last Filed: 10/28/17 16:18> Date of Encounter: 10/28/17 - Attending Attestation I have personally performed a face to face evaluation on this patient. I have reviewed and agree with the care plan. History and Exam by me shows: CC: Weakness Pt admitted with generalized fatique, unexplained weight loss, suicidal ideation. He was found to have severe bradycardia, heart rates in the low thirties, associated with dizziness on change in position from sitting to standing. Pt reports symptoms have been present for weeks, however more severe in this last week. He has had previous outpatient eval, stress and echo ordered , pt did not keep appts. He has hx bradycardia and orthostasis documented back in 2016. did not complete evaluation at that time. Currently he is resting comfortably, denies chest pain, palpitations, dizziness. PMH: reviewed ROS: reviewed. PE: agree with documented findings IMP/Plan: 1. Bradycardia; unclear etiology, previous cardiac eval for structural heart disease negative in 2013, will need repeat echo and provocative stress imaging to rule out ischemic substrate, also not clear he is actually taking his meds, but both trazadone and hydroxizine list bradycardia as side effect, consult psych to see if these could be changed. Further recommendations pending change in meds, cardiac imaging. 2. 2. Bipolar, will defer to psych. Assessment and Plan Discussion w patient/family: The assessment and plan as outlined above was discussed with the patient and/or family members who expressed understanding and agreement. All questions were answered. Thank you for involving us in the care of your patient. Please call with any questions. History of Present Illness History of present illness: Mr. Hunter is a 42 year old male All Systems Review: The remainder of the systems were reviewed and are negative Physical Examination Vital Signs, Last 4 Hours Temp Pulse Resp BP Pulse Ox 10/28/17 15:40 98.5 F 36 16 106/64 100 Results 10/28/17 06:18 10/28/17 06:18 Lab Results 10/28/17 10/28/17 06:18 06:18 WBC 7.0 Hgb 13.8 Hct 39.4 Plt Count 207 Sodium 140 Potassium 3.7 Chloride 109 H Carbon Dioxide 25 BUN 18 Creatinine 0.86 Glucose 91 Calcium 9.0 Troponin I < 0.03
--- NOTE | 2017-10-28 16:38 | Internal Med Progress Note ---
Date of Encounter: 10/28/17 Time of Encounter: 13:00 - Assessment and plan (1) Bradycardia Current Visit: Yes Status: Acute Assessment and plan: No known etiology, asymptomatic currently but reports occasional dizziness while standing Urine tox negative, TSH WNL EKG with sinus bradycardia with incomplete RBBB TTE 2012 with preserved EF Possible due to home medications such as Trazodone and Hydroxizine. Has not taken either medications since admission. Will continue to hold pending any further recommendations by PSYCH. Evaluated by cardio, recommended stress test and TTE. (2) Schizophrenia Current Visit: No Status: Chronic Assessment and plan: Has abnormal thoughts although AAO x3 Uncertain about medication compliance at home Will not resume any medications as it has potential for bradycardia Pending Psychiatry evaluation and recommendations Qualifiers: Schizophrenia type: unspecified Qualified Code(s): F20.9 - Schizophrenia, unspecified - Time Spent With Patient Total time spent is greater than 50% in coordination of care (as documented) at patient's floor/unit and/or counseling patient: - Subjective Interval history: Patient denies any symptoms today. No chest pain, SOB, dizziness or any new complaints apart from weight loss and his skin peeling is melting off. - Constitutional Vitals: Temp Pulse Resp BP Pulse Ox 98.5 F 36 16 106/64 100 10/28/17 15:40 10/28/17 15:40 10/28/17 15:40 10/28/17 15:40 10/28/17 15:40 General appearance: Present: pleasant, no acute distress. Absent: cooperative Exam: General: Alert and oriented Skin: Normal color, no rash, no lesions. HEENT: EOMI, pupils equal, round and reactive. Cardiovascular: Regular rate, regular rythm. No murmurs appreciated. Lungs:Normal breath sounds, no wheezes or crackles. Abdomen:Soft, non-tender, no rigidity. Extremities:No deformity, no edema or tenderness, no joint swelling or clubbing. Neurological:AAO x3. No acute distress however not cognitively intact. Stated that skin is melting off his body. Rest of the physical exam is non contributory Internal Medicine: Result - Labs CBC & Chem 7: 10/28/17 06:18 10/28/17 06:18 Labs: Short CBC 10/28/17 Range/Units 06:18 WBC 7.0 (4.3-11.1) K/mcL Hgb 13.8 (12.9-16.9) g/dL Hct 39.4 (37.5-50.1) % Plt Count 207 (140-400) K/mcL BMP 10/28/17 06:18 Sodium 140 Potassium 3.7 Chloride 109 H Carbon Dioxide 25 BUN 18 Creatinine 0.86 Glucose 91 Calcium 9.0 Cardiac Enzymes 10/28/17 Range/Units 06:18 Troponin I < 0.03 (< 0.04) ng/mL Consult Discharge Plan - Plan Referrals: Victoriano Luu MD [Primary Care Provider] - (web request sent on 10/28/17)
--- NOTE | 2017-10-28 16:51 | Consult Note ---
Date of Encounter: 10/28/17 Time of Encounter: 15:30 History of Present Illness Patient: known to practice within the last 3 years Requesting Physician: Franci Victoria Reason for consult: mental status cahnges History of present illness: Mr. Hunter is a 42 year old male Chief complaint I need to have my bladder scraped. History of present illness: The patient is known to me from a previous hospitalization. The patient has schizophrenia and while he does not have hallucinations he has somatic delusions thought disorder and grossly disorganized behavior. In a previous hospitalization he did not eat very well he ate only salads and complained of constipation when there was no evidence of that. He is an unreliable historian. Today I have seen him and he is given himself a rather unusual haircut he does remember me and acknowledges that he has not taken his medicines. The patient has been followed by the [facility]. He lives in [facility]. He receives case management services and notes that Jina Granda and Sulma Mtz help him with his day-to-day activity. The patient receives his medicine but does not always take it and was on higher levels of medicines. The patient has treatment refractory schizophrenia and antipsychotics do not seem to affect him very much. Is weight loss continued even though he was treated previously The regimen of medicines that we have recommended for him is 20-30 mg olanzapine. In addition up to 4 mg of risperidone. It is not clear that he needs trazodone or hydroxyzine he tends not to respond to them very well. The patient may have been placed on cyproheptadine. Cyproheptadine 4 mg before meals can help increase appetite and some patients. However his delusional thinking maybe driving this weight loss and nutritional difficulties. His follow-up would be with [facility] The patient says that he has never been on Clozaril or clozapine. This medicine is used for treatment refractory schizophrenia. I am not able to recommend this at this time as it is a complicated initiation and titration process. At this point I do not think psychiatric hospitalization is needed the patient can return to an outpatient setting. I do not think the patient is a danger to self or others, and does not meet involuntary hospitalization. However he needs continued outpatient treatment case management and ongoing medication management. He needs assistance with his medicines to help with compliance CC: Franci Victoria Past Med Surg Social Fam HX - Past Medical History Source: patient, old records reviewed Medical history: non-contributory - Past Psychiatric History Psychiatric history: Reports: schizophrenia, previous psychiatric hospitalization Family psychiatric history: Unknown Family History of Suicide: Unknown - Past Surgical History Surgical History: no surgical history - Social History Smoking Status: Never smoker Smokeless Tobacco Status: No Alcohol use: none Drug use: none Occupational status: disabled Current living situation: Home Activity Level: Independent ambulation Recent Out of Country Travel Within the Last 8 Weeks: No Exposure or Possible Exposure to Illness During Travel: No Medications & Allergies OLANZapine [Zyprexa Zydis] 20 mg PO BID 30 Days #120 tab.rapdis 06/13/17 [Rx] Travoprost [Travatan Z] 1 drop OP DAILY 30 Days #30 drops 06/13/17 [Rx] hydrOXYzine pamoate [HydrOXYzine Pamoate] 25 mg PO TID PRN 30 Days #90 capsule 06/13/17 [Rx] lamoTRIgine [Lamictal] 25 mg PO HS 30 Days #30 tablet 06/13/17 [Rx] traZODone [TraZODone] 50 mg PO HS PRN 30 Days #30 tablet 06/13/17 [Rx] Docusate [Colace] 100 mg PO DAILY #30 capsule 08/21/17 [Rx] Benztropine [Cogentin] 1 mg PO BID 10/28/17 [History] Megestrol Acetate 20 mg PO BID 10/28/17 [History] 3 Allergy/AdvReac Type Severity Reaction Status Date / Time No Known Allergies Allergy Verified 10/28/17 09:05 Review of Systems Psychiatric: Reports: confusion, difficulty concentrating Psychiatry Exam - Constitutional Vitals: Temp Pulse Resp BP Pulse Ox 98.5 F 36 16 106/64 100 10/28/17 15:40 10/28/17 15:40 10/28/17 15:40 10/28/17 15:40 10/28/17 15:40 General appearance: age & developmentally appropriate, bizarre, thin - Musculoskeletal Station: relaxed - Psychiatric Patient Orientation: Yes Person, Yes Time, Yes Place Level of alertness: Alert Behavior: calm, cooperative Eye Contact: Maintains Eye Contact Mood Description: Euthymic/stable Affect description: congruent with mood Speech Volume: Normal Speech pattern: normal rate Language & Vocabulary: consistent with education Thought Process: Intact, Thought Blocking, [place] Thought Content: Yes Somatic delusion, Yes Thought broadcasting, Yes Poverty of Content Attention Span Ability: Capable of Sustained Attention Patient Reliability: Not Reliable Historian Intelligence Estimate: Average Judgment: Limited Insight: Minimal Results - Labs Labs: Laboratory Last Values WBC 7.0 K/mcL (4.3-11.1) 10/28/17 06:18 RBC 4.16 M/mcL (4.19-5.50) L 10/28/17 06:18 Hgb 13.8 g/dL (12.9-16.9) 10/28/17 06:18 Hct 39.4 % (37.5-50.1) 10/28/17 06:18 MCV 94.7 fL (83.0-100.0) 10/28/17 06:18 MCH 33.2 pg (28.0-33.3) 10/28/17 06:18 MCHC 35.0 g/dL (31.6-35.5) 10/28/17 06:18 RDW 11.5 % (11.5-14.5) 10/28/17 06:18 Plt Count 207 K/mcL (140-400) 10/28/17 06:18 MPV 9.8 fL (9.4-12.4) 10/28/17 06:18 Immature Gran % 0.1 % (0-4) 10/27/17 22:45 Seg Neutrophils % 46.8 % 10/27/17 22:45 Lymphocytes % 41.2 % 10/27/17 22:45 Monocytes % 8.6 % 10/27/17 22:45 Eosinophils % 2.6 % 10/27/17 22:45 Basophils % 0.7 % 10/27/17 22:45 Neutrophils # 3.2 K/mcL (1.6-8.9) 10/27/17 22:45 Lymphocytes # 2.8 K/mcL (0.6-4.6) 10/27/17 22:45 Monocytes # 0.6 K/mcL (0.0-1.3) 10/27/17 22:45 Eosinophils # 0.2 K/mcL (0.0-0.6) 10/27/17 22:45 Basophils # 0.1 K/mcL (0.0-0.2) 10/27/17 22:45 Sodium 140 mEq/L (136-145) 10/28/17 06:18 Potassium 3.7 mEq/L (3.5-5.1) 10/28/17 06:18 Chloride 109 mEq/L (98-107) H 10/28/17 06:18 Carbon Dioxide 25 mEq/L (23-29) 10/28/17 06:18 BUN 18 mg/dL (6-20) 10/28/17 06:18 Creatinine 0.86 mg/dL (0.70-1.30) 10/28/17 06:18 Est GFR ( Amer) > 60 (> 60) 10/28/17 06:18 Est GFR (Non-Af Amer) > 60 (> 60) 10/28/17 06:18 BUN/Creatinine Ratio 21 (6-26) 10/28/17 06:18 Glucose 91 mg/dL (70-105) 10/28/17 06:18 Calculated Osmolality 291 (280-300) 10/28/17 06:18 Calcium 9.0 mg/dL (8.6-10.3) 10/28/17 06:18 Total Bilirubin 0.8 mg/dL (0.3-1.0) 10/27/17 22:45 Direct Bilirubin 0.1 mg/dL (0.0-0.2) 10/27/17 22:45 Indirect Bilirubin 0.7 mg/dL (0.0-1.2) 10/27/17 22:45 AST 17 Units/L (13-39) 10/27/17 22:45 ALT 26 Units/L (7-52) 10/27/17 22:45 Alkaline Phosphatase 44 Units/L (34-104) 10/27/17 22:45 Troponin I < 0.03 ng/mL (< 0.04) 10/28/17 06:18 Serum Total Protein 7.0 g/dL (6.4-8.9) 10/27/17 22:45 Albumin 4.5 g/dL (3.5-5.7) 10/27/17 22:45 Globulin 2.5 g/dL (2.4-3.5) 10/27/17 22:45 Albumin/Globulin Ratio 1.8 (1.1-2.2) 10/27/17 22:45 TSH 0.436 mcIU/mL (0.340-5.600) 10/27/17 22:45 Urine Color Yellow (Yellow) 10/27/17 22:50 Urine Clarity Cloudy (Clear) A 10/27/17 22:50 Urine pH 6.0 pH Units (5.0-8.0) 10/27/17 22:50 Ur Specific [place] 1.017 (1.010-1.025) 10/27/17 22:50 Urine Protein Negative mg/dL (Neg-Trace) 10/27/17 22:50 Urine Glucose (UA) Normal mg/dL (Normal) 10/27/17 22:50 Urine Ketones Negative mg/dL (Negative) 10/27/17 22:50 Urine Blood Negative (Negative) 10/27/17 22:50 Urine Nitrite Negative (Negative) 10/27/17 22:50 Urine Bilirubin Negative (Negative) 10/27/17 22:50 Urine Urobilinogen Normal mg/dL (Normal) 10/27/17 22:50 Ur Leukocyte Esterase Negative (Negative) 10/27/17 22:50 Urine Microscopic RBC 5-15 per hpf (0-3) H 10/27/17 22:50 Urine Microscopic WBC 0-3 per hpf (0-3) 10/27/17 22:50 Ur Squamous Epith Cells Moderate per lpf (None-Few) H 10/27/17 22:50 Calcium Oxalate Crystal Present 10/27/17 22:50 Urine Bacteria None Seen per hpf (None-Few) 10/27/17 22:50 Salicylates < 2.5 mg/dL (15.0-30.0) L 10/27/17 22:45 Urine Opiates Screen Negative ng/mL (Igvmmp=278) 10/27/17 22:35 Acetaminophen < 10 mcg/mL (10-20) L 10/27/17 22:45 Ur Barbiturates Screen Negative ng/mL (Pylsbk=539) 10/27/17 22:35 Ur Phencyclidine Scrn Negative ng/mL (Cutoff=25) 10/27/17 22:35 Ur Amphetamines Screen Negative ng/mL (Msrqjp=3299) 10/27/17 22:35 U Benzodiazepines Scrn Negative ng/mL (Cwadbh=420) 10/27/17 22:35 Urine Cocaine Screen Negative ng/mL (Cutoff= 300) 10/27/17 22:35 U Marijuana (THC) Screen Negative ng/mL (Cutoff = 50) 10/27/17 22:35 Ur Drug Screen Interp See Below 10/27/17 22:35 Ethyl Alcohol < 10 mg/dL (Less than 10) 10/27/17 22:45 Consult Discharge Plan - Plan Referrals: Victoriano Luu MD [Primary Care Provider] - (web request sent on 10/28/17)
[2017-10-28] MEDS: *HR* Heparin 5,000 UNIT/ML VIAL SQ SCH (18:16)
[2017-10-29] MEDS: OLANZapine 10 MG TAB.RAPDIS PO SCH ×3 (07:16→20:08)
[2017-10-29] MEDS: lamoTRIgine 25 MG TABLET PO SCH ×2 (07:16→20:08)
[2017-10-29] MEDS: Latanoprost 2.5 ML BOTTLE BOTH EYES SCH ×3 (07:16→20:09)
[2017-10-29] MEDS: *HR* Heparin 5,000 UNIT/ML VIAL SQ SCH ×2 (07:17→17:19)
[2017-10-29] MEDS: risperiDONE 1 MG TABLET PO SCH (09:45)
--- NOTE | 2017-10-29 11:33 | Cardiology Progress Note ---
<Susan Morfin - Last Filed: 10/29/17 11:29> Date of Encounter: 10/29/17 Time of Encounter: 08:00 Assessment and Plan (1) Bradycardia Current Visit: Yes Status: Acute Per cardiology: -Sinus bradycardia. EKG shows sinus bradycardia with incomplete RBBB, QT/QTc 442/356, QRS 99. Telemetry review shows vg HR 37 bpm. No pauses or heart block seen. C/o weakness and fatigue in relation to significant weight loss. -Denies dizziness, lightheadedness. -Currently b/p is stable. No significant symptoms at rest. -Electrolytes are normal. -TSH is normal. -TTE with LVEF preserved, no segmental wall motion abnormalities noted. -Stress test 2013- negative for ischemia. -Average HR previous 12 hours noted to be 38, SB. -PLan for exercise nuclear stress test in am. NPO after midnight. -Further recommendations pending stress. (2) Abnormal echocardiogram Current Visit: Yes Status: Acute Per cardiology: -TTE with LVEF 60-65%. Mild left ventricular diastolic dysfunction. Prominent RV moderator band, borderline dilated RV with prominent ventricular trabeculae, consider outpatient MRI to ruleout other cardiomyopathy such as ARVD or LV noncompaction. Mobile filamentous structure attached to tricuspid valve likely ruptured chordae, but cannot ruleout endocarditis. If clinically indicated (eg fever, positive blood cultures, etc), elective TAWANNA to evaluate for endocarditis -Regarding dilated RV with prominent ventricular trabeculae, will consider outpatient cardiac MRI> -Regarding mobile filamentous structure attached to tricuspic valve, likely ruptured chordae, but cannot rule out endocarditis. Patient is afebrile, no leukocytosis. Discussion w patient/family: The assessment and plan as outlined above was discussed with the patient who expressed understanding and agreement. All questions were answered. Thank you for involving us in the care of your patient. Please call with any questions. Discussed and reviewed with Dr.John Noland. Subjective Principal diagnosis: bradycardia Interval history: Patient denies dizziness, lightheadedness. Patient concerned about a "spot on his bladder." Objective Vital Signs, Last 4 Hours Temp Pulse Resp BP Pulse Ox 10/29/17 08:29 98.1 F 39 14 93/58 99 General: Conversant, No Apparent Distress HEENT: Atraumatic, Normocephaly, Mucus Membranes Moist Neck: No JVD, Normal carotid pulses Cardiac: Reg Rate and Rhythm, Normal S1 and S2, No Murmur Lungs: Normal Breath Sounds, No Wheeze, Rales, Rhonchi Neuro: Alert and responsive, No focal deficits noted Abdomen: Soft, Non-Tender Skin: No rashes noted on visualized skin Musculoskeletal: No Chest Wall Tenderness Extremities: No Clubbing, No Cyanosis, No Edema, Normal Pulses Results 10/28/17 06:18 10/28/17 06:18 Impressions Echocardiogram 10/28/17 11:03 Impressions: LVEF 60-65%. Mild left ventricular diastolic dysfunction. Prominent RV moderator band, borderline dilated RV with prominent ventricular trabeculae, consider outpatient MRI to ruleout other cardiomyopathy such as ARVD or LV noncompaction Mobile filamentous structure attached to tricuspid valve likely ruptured chordae, but cannot ruleout endocarditis. If clinically indicated (eg fever, positive blood cultures, etc), elective TAWANNA to evaluate for endocarditis Left Ventricular Wall Motion: Rest Echo Findings All wall segments showed normal motion. Findings: Study Quality * Technically adequate exam. Right Ventricle * Normal right ventricular function with borderline dilated ventricle * Prominent moderator band and trabeculae Left Atrium * Normal left atrial size. Right Atrium * Normal right atrial size. Aortic Valve * Trileaflet aortic valve with normal function. Mitral Valve * Normal mitral valve structure and function. Interatrial Septum * No evidence of PFO by color Doppler. Aorta * Normally sized aortic root. Pericardium * The pericardium appears normal. ECG Findings * Sinus bradycardia. Tricuspid Valve * Estimated RVSP is 21 mmHg. * Estimated RA pressure is 0-5 mmHg. * No pulmonary hypertension. * Trace tricuspid regurgitation. * No tricuspid stenosis. * Mobile filamentous structure attached to tricuspid valve likely ruptured chordae, but cannot ruleout endocarditis. If clinically indicated (eg fever, positive blood cultures, etc), elective TAWANNA to evaluate for endocarditis Left Ventricle * LVEF 60-65%. * Mild left ventricular diastolic dysfunction. * Prominent LV trabeculae Active Medications Acetaminophen (Tylenol) 650 mg PO Q6HR PRN PRN Reason: Mild Pain/Fever Stop: 04/29/18 06:06 Benztropine Mesylate (Cogentin) 1 mg PO BID [facility] Stop: 04/30/18 04:16 Last Admin: 10/29/17 07:17 Dose: Not Given Heparin Sodium (Porcine) (Heparin) 5,000 unit SQ Q12HCO [facility] Stop: 04/29/18 18:01 Last Admin: 10/29/17 07:17 Dose: Not Given Lamotrigine (Lamictal) 25 mg PO HS [facility] Stop: 04/30/18 04:04 Last Admin: 10/29/17 07:16 Dose: Not Given Latanoprost (Xalatan) 1 drop BOTH EYES HS [facility] PRN Reason: Protocol Stop: 04/30/18 00:16 Last Admin: 10/29/17 11:06 Dose: 1 drop Naloxone HCl (Narcan) 0.4 mg IVP Q2MIN PRN PRN Reason: SEE COMMENTS Stop: 04/29/18 06:06 Olanzapine (Zyprexa Zydis) 20 mg PO BID [facility] Stop: 04/30/18 04:04 Last Admin: 10/29/17 09:45 Dose: 20 mg Risperidone (Risperdal) 4 mg PO DAILY [facility] Stop: 04/30/18 09:01 Last Admin: 10/29/17 09:45 Dose: 4 mg Laboratory Tests 10/27/17 10/28/17 10/28/17 22:45 06:18 06:18 WBC 7.0 Hgb 13.8 Creatinine 0.86 Troponin I < 0.03 < 0.03 - Imaging and Cardiology Chest Xray: report reviewed Stress Test: pending Echo: report reviewed - EKG Interpretation EKG results cardiology: other (Telemetry reviewed with average HR previous 12 hours noted to be 38, SB. PACs noted.) Consult Discharge Plan - Plan Referrals: Victoriano Luu MD [Primary Care Provider] - (web request sent on 10/28/17) <Edgar Noland - Last Filed: 10/29/17 11:51> Date of Encounter: 10/29/17 Assessment and Plan Discussion w patient/family: The assessment and plan as outlined above was discussed with the patient and/or family members who expressed understanding and agreement. All questions were answered. Thank you for involving us in the care of your patient. Please call with any questions. Objective Vital Signs, Last 4 Hours Temp Pulse Resp BP Pulse Ox 10/29/17 08:29 98.1 F 39 14 93/58 99 Results 10/28/17 06:18 10/28/17 06:18
--- NOTE | 2017-10-29 17:37 | Internal Med Progress Note ---
Date of Encounter: 10/29/17 Time of Encounter: 12:00 - Assessment and plan (1) Bradycardia Current Visit: Yes Status: Acute Assessment and plan: No known etiology, asymptomatic currently but reports occasional dizziness. HR improving. Urine tox negative, TSH WNL EKG with sinus bradycardia with incomplete RBBB TTE 2012 with preserved EF Medications changed, appreciated PSYCH recommendations. Evaluated by cardio, TTE complete, plan for stress test in AM (2) Schizophrenia Current Visit: No Status: Chronic Assessment and plan: Has abnormal thoughts although AAO x3 Uncertain about medication compliance at home Medications with potential for bradycardia discontinued On Olanzapine and Risperdal. Psych evaluated. Qualifiers: Schizophrenia type: unspecified Qualified Code(s): F20.9 - Schizophrenia, unspecified - Time Spent With Patient Total time spent is greater than 50% in coordination of care (as documented) at patient's floor/unit and/or counseling patient: - Subjective Interval history: Reports feeling fine but had random strange tangential conversations. Denies any chest pain/dizziness. - Constitutional Vitals: Temp Pulse Resp BP Pulse Ox 98 F 68 20 98/68 99 10/29/17 16:17 10/29/17 16:17 10/29/17 16:17 10/29/17 16:17 10/29/17 16:17 General appearance: Present: pleasant, no acute distress. Absent: cooperative Exam: General: Alert and oriented Skin: Normal color, no rash, no lesions. HEENT: EOMI, pupils equal, round and reactive. Cardiovascular: Regular rate, regular rythm. No murmurs appreciated. Lungs:Normal breath sounds, no wheezes or crackles. Abdomen:Soft, non-tender, no rigidity. Extremities:No deformity, no edema or tenderness, no joint swelling or clubbing. Neurological:AAO x3. No acute distress however continually express strange thoughts. Internal Medicine: Result - Labs CBC & Chem 7: 10/28/17 06:18 10/28/17 06:18 Consult Discharge Plan - Plan Referrals: Victoriano Luu MD [Primary Care Provider] - (web request sent on 10/28/17)
[2017-10-30] MEDS: *HR* Heparin 5,000 UNIT/ML VIAL SQ SCH (06:47)
[2017-10-30] MEDS: risperiDONE 1 MG TABLET PO SCH ×2 (09:35→09:46)
[2017-10-30] MEDS: OLANZapine 10 MG TAB.RAPDIS PO SCH (09:35)
[2017-10-30 11:06] VITALS: BP 103/70
--- NOTE | 2017-10-30 12:36 | Event Note ---
Date of Encounter: 10/30/17 Time of Encounter: 12:32 - Cardiology Event Note Stress test resulted with perfusion imaging negative for ischemia or infarct. Patient achieved 10.1 mets and achieved 85% of target HR. Patient stopped test due to shortness of breath. Patient had appropriate HR response to exercise. Telemetry reviewed with average HR previous 12 hours noted to be 41, SB. Denies dizziness, lightheadedness. Cardiology will sign off and will follow in outpatient setting. Follow up set.
--- NOTE | 2017-10-30 13:24 | Discharge Summary ---
- NOTES TO OUTPATIENT PROVIDER Notes to Outpatient Provider: Please follow up regarding complaints of weight loss and signficant body changes. Unsure if patient has somatization but only has specific complaints of weight loss and flesh melting off. Date of Encounter: 10/30/17 Time of Encounter: 10:30 - Discharge Diagnosis (1) Bradycardia, sinus Priority: Primary Status: Acute Assessment and Plan: No known etiology, asymptomatic currently but reports occasional dizziness. HR improving. Urine tox negative, TSH WNL EKG with sinus bradycardia with incomplete RBBB TTE 2012 with preserved EF Medications changed, appreciated PSYCH recommendations. Evaluated by cardio, TTE and stress test completed and reviewed. For follow up with cardio as outpatient. (2) Schizophrenia Priority: Secondary Status: Chronic Assessment and Plan: Has abnormal thoughts although AAO x3 Uncertain about medication compliance at home Medications with potential for bradycardia discontinued On Olanzapine and Risperdal. Psych evaluated. Qualifiers: Schizophrenia type: unspecified Qualified Code(s): F20.9 - Schizophrenia, unspecified (3) Weight loss Priority: Secondary Status: Acute Assessment and Plan: Reports weight loss as well as additional complaints such as flesh and skin melting off his body No other specific complaints that would warrant investigation Unsure if this is part of the somatization psychiatric issue Follow up with PMD outpatient if weight loss is real and investigate if needed based on symptoms and clinical picture. Hospital course: Mr. Hunter is a 42 year old male with PMH schizophrenia presented to ER and was found to be bradycardia with HR in 30s. Admitted for further workup including stress test and ECHO which showed no significant abnormalities and can be follow up with cardio as outpatient. Denies any syptoms that could be the result of bradycardia at this time. He reports multiple complaints about his body, his head, skin and weight. Unable to determine whether the weight loss is real as he also has other complaints including that his skin is melting away. No specific symptoms that warrants a particular workup. Recommend follow up with PMD for any workup if weight loss is real and patient has any risk factor or other associated complaints. Discharge discussed with: patient, nurse, case management - Time Spent with Patient Total time spent providing and/or coordinating discharge services: - Discharge Medications Prescriptions: risperiDONE [RisperDAL] 2 mg PO DAILY 30 Days #30 tablet Home Medications: OLANZapine [Zyprexa Zydis] 20 mg PO BID 30 Days #120 tab.rapdis 06/13/17 [Rx] Travoprost [Travatan Z] 1 drop OP DAILY 30 Days #30 drops 06/13/17 [Rx] lamoTRIgine [Lamictal] 25 mg PO HS 30 Days #30 tablet 06/13/17 [Rx] traZODone [TraZODone] 50 mg PO HS PRN 30 Days #30 tablet 06/13/17 [Rx] Docusate [Colace] 100 mg PO DAILY #30 capsule 08/21/17 [Rx] Megestrol Acetate 20 mg PO BID 10/28/17 [History] risperiDONE [RisperDAL] 2 mg PO DAILY 30 Days #30 tablet 10/30/17 [Rx] Allergies/Adverse Reactions: 3 Allergy/AdvReac Type Severity Reaction Status Date / Time No Known Allergies Allergy Verified 10/28/17 09:05 Date of admission: 10/28/17 16:31 Primary care physician: Victoriano Luu MD - Constitutional Vitals: Temp Pulse Resp BP Pulse Ox 97.8 F 66 18 103/70 97 10/30/17 10:48 10/30/17 10:48 10/30/17 10:48 10/30/17 10:48 10/30/17 10:48 General appearance: Present: pleasant, no acute distress. Absent: cooperative Exam: General: Alert and oriented Skin: Normal color, no rash, no lesions. HEENT: EOMI, pupils equal, round and reactive. Cardiovascular: Regular rate, regular rhythm. No murmurs appreciated. Lungs:Normal breath sounds, no wheezes or crackles. Abdomen:Soft, non-tender, no rigidity. Extremities:No deformity, no edema or tenderness, no joint swelling or clubbing. Neurological:AAO x3. No acute distress however continually express strange thoughts. - Patient Status Disposition: Home, Self-Care Condition: Fair Overall status at discharge: patient is progressing back to baseline - Discharge Instructions Follow Up With: Victoriano Luu MD [Primary Care Provider] - (web request sent on 10/28/17) Forms: ED Satisfaction Letter, Work/School Release - Diet and Activity Activity: resume usual activities as tolerated - VTE Documentation of Mechanical Device: Intermittent pneumatic compression device
== END 2017-10-30 15:48 | disposition home or self-care (01) | DRG 310 ==
LOC: EMEROO 21:59 → 2ANU 21:59 → SUATTDRO 10-28 16:31
PROVIDERS: ADMIT Student in an Organized Health Care Education/Training Program; ATTEND Student in an Organized Health Care Education/Training Program